=== PATIENT | female | born 1995 | race Caucasian/White ===

== ENCOUNTER 2021-10-20 05:20 | Inpatient (IN) ==
[2021-10-20] MEDS ORDERED: OXYTOCIN 30 UNITS/500 ML BAG IV PRN ×3 (07:35→23:17)
--- NOTE | 2021-10-20 07:38 | History & Physical Report ---
Date of Service October 20, 2021 Assessment & Plan (1) Supervision of normal intrauterine in primigravida: Plan: Admit to L&D, EFM/toco. Labs. OK for epidural when she desires. History of Present Illness Chief Complaint: contractions Primary Care Provider: RANDY PCP 26yo @ 39 0/7, presented with painful contractions. No leaking fluid. Had a small amount of vaginal bleeding at home prior to arrival. + movement. with echogenic bowel. Had COVID+ 09/07. Allergies Allergy/AdvReac Type Severity Reaction Status Date / Time No Known Allergies Allergy Verified 10/15/21 15:05 Home Medications Medication Instructions Recorded Confirmed Type prenat.vits,hai,yxu-lgoc-tqiuu 1 tab PO DAILY 10/20/21 10/20/21 History Patient History Medical History Foot fracture, left Family History Grandfather (Maternal) Diabetes Father Heart disease Social History Smoking Status: Never smoker Second Hand Exposure: No; Do You Dip or Chew Tobacco: No; Tobacco Cessation Education Requested by Patient: No Hx Alcohol Use: No Hx Substance Use: No Preferred Language: Peruvian Communication Ability: Effective Inspector Canvas Products Required: No Beliefs That Will Affect Care: None marital status: marital status details: Junior Maloney ([phone] Current Living Situation: Spouse Current Living Situation Comment: lives with current occupational status: unemployed Other Information That Helps Us Care for You: No Feels Safe at Home: Yes Safety Concerns: Feels Safe At This Time Assistive Devices: None Review of Systems All systems reviewed & are unremarkable except as noted in HPI & below Physical Exam Physical Exam: FHT Cat 1 [place] Q 2-3 SVE 4-5/80/-2 soft/mid Constitutional: WD/WN, vitals as above Respiratory: normal respiratory effort, lungs clear to auscultation no respiratory distress Cardiovascular: Rate/Rhythm: regular rate and regular rhythm Gastrointestinal (Abdomen): Inspection/Auscultation: abdomen normal to inspection Percussion/Palpation: abdomen soft; abdomen nontender Gravid. No s/s chorio or abruption. Skin: no rashes, warm and dry Psychiatric: A+Ox3, euthymic affect Results & Data ([facility]) Vital Signs (Past 12 Hours) Vital Signs Temp Pulse Resp BP 10/20/21 07:11 36.6 C 81 20 124/85 10/20/21 05:49 36.7 C 18 10/20/21 05:37 86 125/87 Coding Level of Care Code None Diagnoses Supervision of normal intrauterine in primigravida Z34.00
[2021-10-20 07:52] LABS: Hematocrit (blood only) 34.9 % (37-47); Hemoglobin 11.5 g/dL (12.0-16.0); Mean Corpuscular Hemoglobin 30.7 pg (25-34); Mean Corpuscular Volume 93.3 fL (80-100); Mean Platelet Volume 11.6 fL (7.4-10.4); Platelet Count 159 K/uL (130-400); RDW Coefficient of Variation 15.9 % (11.5-14.5); RDW Standard Deviation 53.4 fL (36.4-46.3); Red Blood Count 3.74 M/uL (4.2-5.4); White Blood Count 12.02 K/uL (4.8-10.8)
[2021-10-20] MEDS: LACTATED RINGER'S 1,000 ML IV PRN ×3 (07:57→16:51)
[2021-10-20] MEDS ORDERED: fentaNYL citrate 100 MCG/2 ML VIAL ONE (08:02)
[2021-10-20] MEDS ORDERED: ePHEDrine sulfate 50 MG/ML AMP ONE (08:02)
[2021-10-20] MEDS ORDERED: BUPIVACAINE 0.25% 30 ML VIAL ONE ×2 (08:02→17:21)
[2021-10-20] MEDS ORDERED: SODIUM CHLORIDE 0.9% INJ 10 ML VIAL ONE ×2 (08:02→17:22)
[2021-10-20] MEDS ORDERED: fentaNYL 2MCG/ML ROPIVACAINE 1.25MG/ML 100 ML BAG EPI ONE (08:03)
[2021-10-20] MEDS ORDERED: ONDANSETRON INJ 2 MG/ML 2 ML VIAL IV PRN (08:30)
[2021-10-20] MEDS ORDERED: fentaNYL 2MCG/ML ROPIVACAINE 1.25MG/ML 100 ML BAG EPI PRN (08:30)
[2021-10-20] MEDS ORDERED: NALOXONE HCL 1 MG in SODIUM CHLORIDE 0.9% 1000ML 1,000 ML IV PRN (08:30)
[2021-10-20] MEDS ORDERED: NALOXONE HCL 0.4 MG/1 ML VIAL/CARP IV PRN (08:30)
[2021-10-20] MEDS ORDERED: NALBUPHINE HCL INJ 10 MG/ML AMP IV PRN (08:30)
[2021-10-20] MEDS ORDERED: diphenhydrAMINE 50 MG/ML VIAL IV PRN (08:30)
[2021-10-20] MEDS ORDERED: ePHEDrine sulfate 50 MG/ML AMP IV PRN (08:30)
--- NOTE | 2021-10-20 08:32 | Anesthesiology Consultation ---
Date of Service October 20, 2021 Assessment & Plan Chart Review Chart Review: Patient NOT seen in Pre Admission Testing and Acceptable Risk for Labor Epidural Consults Requested none ASA ASA2 Proposed Anesthesia Anesthesia Type: Labor Epidural and CSE Risk / Benefits Reviewed With: PT / POA / Parent / Guardian, Accepts Plan and Informed Consent Obtained History Height/Weight Height: 5 ft 5 in Weight: 104.326 kg Allergies Allergy/AdvReac Type Severity Reaction Status Date / Time No Known Allergies Allergy Verified 10/15/21 15:05 Medications Home Medications Medication Instructions Recorded Confirmed Last Taken prenat.vits,hai,kpp-hdjm-kqvdu 1 tab PO DAILY 10/20/21 10/20/21 Unknown Active Medications Generic Name Dose Route Start Last Admin Trade Name Freq PRN Reason Stop Dose Admin Lactated Ringer's 1,000 mls @ 125 mls/hr 10/20/21 07:35 10/20/21 07:57 Lr IV 10/22/21 07:34 999 mls/hr .Q8H PRN Administration L&D Protocol Protocol NPO Date Last Intake of Fluids: 10/20/21 Time Last Intake of Fluids: 20:00 Date Last Intake of Solids: 10/19/21 Time Last Intake of Solids: 08:31 Past Medical History Medical History Foot fracture, left Exercise / Class Metabolic Activity II 4-5 Yardwork/Stairs/Walk up hill Past Family History Family History Grandfather (Maternal) Diabetes Father Heart disease Past Anesthesia History No Hx of Anesthesia Complications and No Family Hx of Anesthesia Complications History of PONV No Hx of PONV and No Hx of Motion Sickness Social History Smoking Status: Never smoker Do You Dip or Chew Tobacco: No Hx Alcohol Use: No Hx Substance Use: No substance use type: does not use Review of Systems no chest pain or sob Physical Exam Vital Signs Last Vital Signs Temp 36.6 C 10/20/21 07:11 Pulse 82 10/20/21 08:26 Resp 20 10/20/21 07:11 BP 124/85 10/20/21 07:11 Pulse Ox 100 10/20/21 08:26 ENMT Mouth: no TMJ abnormality Thyromental Distance: > or= 3.5 Finger Breadths Mallampati Class: II Neck normal visual inspection Respiratory normal respiratory effort Auscultation: lungs clear to auscultation bilaterally Cardiovascular Rate/Rhythm: regular rate and regular rhythm Musculoskeletal Spine: normal cervical ROM Neurologic moves all extremities Psychiatric Orientation: alert and oriented x 3 Testing Laboratory Results 10/20/21 07:43
[2021-10-20] MEDS: CALCIUM CARBONATE 500 MG CHEWABLE TAB PO PRN ×2 (10:24→15:55)
[2021-10-20] MEDS ORDERED: ACETAMINOPHEN 500 MG TAB PO PRN (12:27)
[2021-10-20] MEDS ORDERED: NURSING L&D Epidural Breakthrough Pain Update ONE (17:48)
--- NOTE | 2021-10-20 18:07 | Labor Progress Brief Note ---
Date of Service October 20, 2021 Subjective Somewhat comfortable with epidural redose. FHT Cat 1 [place] Q 1-2 9cm. Continue labor, anticipate . Assessment & Plan Admission and Anticipated Discharge Date Admission Date: October 20, 2021 Results & Data ([facility]) Vital Signs (Past 12 Hours) Vital Signs Temp Pulse Resp BP Pulse Ox 10/20/21 18:01 89 99 10/20/21 17:56 87 98 10/20/21 17:53 86 112/90 10/20/21 17:51 89 99 10/20/21 17:46 92 H 100 10/20/21 17:41 94 H 99 10/20/21 17:38 100 H 110/55 L 10/20/21 17:36 95 H 100 10/20/21 17:35 86 120/62 10/20/21 17:31 102 H 100 10/20/21 17:26 101 H 99 10/20/21 17:23 96 H 134/92 10/20/21 17:21 92 H 99 10/20/21 17:16 95 H 99 10/20/21 17:11 112 H 99 10/20/21 17:07 91 H 135/86 10/20/21 17:06 96 H 99 10/20/21 17:01 104 H 99 10/20/21 16:56 85 98 10/20/21 16:53 86 107/57 L 10/20/21 16:51 92 H 99 10/20/21 16:46 90 98 10/20/21 16:41 91 H 98 10/20/21 16:37 90 130/80 10/20/21 16:36 88 96 10/20/21 16:31 85 96 10/20/21 16:26 86 96 10/20/21 16:22 81 125/74 10/20/21 16:21 87 96 10/20/21 16:16 84 97 10/20/21 16:11 85 96 10/20/21 16:07 81 135/80 10/20/21 16:06 89 96 10/20/21 16:01 89 96 10/20/21 15:56 95 H 97 10/20/21 15:53 88 133/75 10/20/21 15:51 95 H 98 10/20/21 15:46 92 H 97 10/20/21 15:41 96 H 98 10/20/21 15:37 95 H 131/80 10/20/21 15:36 100 H 98 10/20/21 15:31 97 H 97 10/20/21 15:26 93 H 96 10/20/21 15:24 82 110/64 10/20/21 15:21 93 H 97 10/20/21 15:16 86 96 10/20/21 15:11 87 96 10/20/21 15:08 92 H 128/83 10/20/21 15:06 91 H 98 10/20/21 15:01 86 97 10/20/21 14:56 85 97 10/20/21 14:53 81 131/81 10/20/21 14:51 88 97 10/20/21 14:46 100 H 98 10/20/21 14:41 97 H 96 10/20/21 14:38 90 123/72 10/20/21 14:36 93 H 97 10/20/21 14:31 87 95 10/20/21 14:26 88 96 10/20/21 14:23 87 127/81 10/20/21 14:21 90 97 10/20/21 14:16 87 97 10/20/21 14:11 100 H 97 10/20/21 14:08 90 130/65 10/20/21 14:06 95 H 97 10/20/21 14:01 86 97 10/20/21 13:56 93 H 97 10/20/21 13:52 88 20 149/77 H 10/20/21 13:51 92 H 98 10/20/21 13:46 90 97 10/20/21 13:41 91 H 97 10/20/21 13:39 181 H 129/80 10/20/21 13:36 89 97 10/20/21 13:31 99 H 97 10/20/21 13:26 92 H 96 10/20/21 13:23 96 H 133/93 10/20/21 13:21 90 97 10/20/21 13:16 94 H 98 10/20/21 13:11 96 H 97 10/20/21 13:08 88 129/74 10/20/21 13:06 94 H 97 10/20/21 13:01 98 H 97 10/20/21 13:00 36.9 C 20 10/20/21 12:56 91 H 97 10/20/21 12:53 85 111/57 L 10/20/21 12:51 93 H 98 10/20/21 12:46 91 H 98 10/20/21 12:41 97 H 98 10/20/21 12:38 90 131/86 10/20/21 12:36 91 H 98 10/20/21 12:31 98 H 98 10/20/21 12:26 98 H 98 10/20/21 12:22 93 H 129/74 10/20/21 12:21 93 H 98 10/20/21 12:16 94 H 99 10/20/21 12:11 101 H 99 10/20/21 12:07 87 123/75 10/20/21 12:06 88 97 10/20/21 12:01 90 95 10/20/21 11:56 87 97 10/20/21 11:52 80 115/61 10/20/21 11:51 85 96 10/20/21 11:46 82 96 10/20/21 11:41 81 96 10/20/21 11:37 80 108/56 L 10/20/21 11:36 81 96 10/20/21 11:31 86 95 10/20/21 11:26 83 95 10/20/21 11:23 82 116/63 10/20/21 11:21 86 98 10/20/21 11:16 83 98 10/20/21 11:14 93 H 94 10/20/21 11:11 85 96 10/20/21 11:08 82 117/73 10/20/21 11:06 86 98 10/20/21 11:01 85 98 10/20/21 11:00 36.7 C 20 10/20/21 10:56 86 99 10/20/21 10:53 88 97/59 L 10/20/21 10:51 96 H 99 10/20/21 10:46 90 98 10/20/21 10:41 89 98 10/20/21 10:37 86 120/73 10/20/21 10:36 85 98 10/20/21 10:31 91 H 98 10/20/21 10:26 92 H 99 10/20/21 10:22 82 117/64 10/20/21 10:21 99 H 99 10/20/21 10:16 91 H 100 10/20/21 10:11 94 H 100 10/20/21 10:07 88 142/65 H 10/20/21 10:06 108 H 95 10/20/21 10:01 91 H 99 10/20/21 09:56 85 100 10/20/21 09:52 89 134/70 10/20/21 09:51 92 H 99 10/20/21 09:46 106 H 98 10/20/21 09:41 86 97 10/20/21 09:37 93 H 147/67 H 10/20/21 09:36 83 99 10/20/21 09:31 86 97 10/20/21 09:26 107 H 97 10/20/21 09:24 99 H 154/60 H 10/20/21 09:21 86 96 10/20/21 09:16 89 96 10/20/21 09:11 89 97 10/20/21 09:09 86 128/69 10/20/21 09:06 96 H 99 10/20/21 09:01 93 H 117/76 98 10/20/21 08:56 96 H 99 10/20/21 08:54 88 119/80 10/20/21 08:52 92 H 129/92 10/20/21 08:51 84 100 10/20/21 08:50 88 121/78 10/20/21 08:46 87 100 10/20/21 08:41 82 100 10/20/21 08:36 99 H 99 10/20/21 08:31 85 98 10/20/21 08:26 82 100 10/20/21 08:21 96 H 99 10/20/21 08:16 88 100 10/20/21 08:12 90 93 10/20/21 08:11 91 H 95 10/20/21 07:11 36.6 C 81 20 124/85 Coding Level of Care Code None
--- NOTE | 2021-10-20 21:18 | Labor Progress Brief Note ---
Date of Service October 20, 2021 Subjective Actively pushing with good effort. FHT Cat 1 [place] Q 2 Station 2+ Assessment & Plan Admission and Anticipated Discharge Date Admission Date: October 20, 2021 Results & Data ([facility]) Vital Signs (Past 12 Hours) Vital Signs Temp Pulse Resp BP Pulse Ox 10/20/21 21:16 80 100 10/20/21 21:11 95 H 100 10/20/21 21:07 86 132/75 10/20/21 21:06 97 H 99 10/20/21 21:05 36.8 C 10/20/21 21:01 85 98 10/20/21 21:00 20 10/20/21 20:56 109 H 98 10/20/21 20:51 104 H 99 10/20/21 20:46 91 H 99 10/20/21 20:41 87 100 10/20/21 20:37 85 137/93 10/20/21 20:36 87 100 10/20/21 20:31 92 H 99 10/20/21 20:30 20 10/20/21 20:26 93 H 100 10/20/21 20:23 92 H 126/85 10/20/21 20:21 99 H 99 10/20/21 20:16 95 H 100 10/20/21 20:11 96 H 98 10/20/21 20:07 96 H 128/88 10/20/21 20:06 96 H 98 10/20/21 20:01 89 97 10/20/21 20:00 16 10/20/21 19:56 92 H 99 10/20/21 19:52 93 H 132/83 10/20/21 19:51 87 98 10/20/21 19:46 93 H 99 10/20/21 19:41 94 H 100 10/20/21 19:37 86 135/87 10/20/21 19:36 91 H 97 10/20/21 19:31 90 98 10/20/21 19:30 18 10/20/21 19:26 91 H 97 10/20/21 19:22 101 H 131/88 10/20/21 19:21 94 H 99 10/20/21 19:16 90 98 10/20/21 19:11 94 H 99 10/20/21 19:08 98 H 138/78 10/20/21 19:06 96 H 98 10/20/21 19:01 36.8 C 102 H 18 99 10/20/21 18:56 83 96 10/20/21 18:52 83 127/68 10/20/21 18:51 85 96 10/20/21 18:46 90 97 10/20/21 18:41 86 97 10/20/21 18:37 89 121/64 10/20/21 18:36 87 97 10/20/21 18:31 87 97 10/20/21 18:26 86 96 10/20/21 18:22 83 119/65 10/20/21 18:21 83 97 10/20/21 18:16 87 97 10/20/21 18:11 84 96 10/20/21 18:09 86 123/70 10/20/21 18:06 88 99 10/20/21 18:01 89 99 10/20/21 17:56 87 98 10/20/21 17:53 86 112/90 10/20/21 17:51 89 99 10/20/21 17:46 92 H 100 10/20/21 17:41 94 H 99 10/20/21 17:38 100 H 110/55 L 10/20/21 17:36 95 H 100 10/20/21 17:35 86 120/62 10/20/21 17:31 102 H 100 10/20/21 17:26 101 H 99 10/20/21 17:23 96 H 134/92 10/20/21 17:21 92 H 99 10/20/21 17:16 95 H 99 10/20/21 17:11 112 H 99 10/20/21 17:07 91 H 135/86 10/20/21 17:06 96 H 99 10/20/21 17:01 104 H 99 10/20/21 16:56 85 98 10/20/21 16:53 86 107/57 L 10/20/21 16:51 92 H 99 10/20/21 16:46 90 98 10/20/21 16:41 91 H 98 10/20/21 16:37 90 130/80 10/20/21 16:36 88 96 10/20/21 16:31 85 96 10/20/21 16:26 86 96 10/20/21 16:22 81 125/74 10/20/21 16:21 87 96 10/20/21 16:16 84 97 10/20/21 16:11 85 96 10/20/21 16:07 81 135/80 10/20/21 16:06 89 96 10/20/21 16:01 89 96 10/20/21 15:56 95 H 97 10/20/21 15:53 88 133/75 10/20/21 15:51 95 H 98 10/20/21 15:46 92 H 97 10/20/21 15:41 96 H 98 10/20/21 15:37 95 H 131/80 10/20/21 15:36 100 H 98 10/20/21 15:31 97 H 97 10/20/21 15:26 93 H 96 10/20/21 15:24 82 110/64 10/20/21 15:21 93 H 97 10/20/21 15:16 86 96 10/20/21 15:11 87 96 10/20/21 15:08 92 H 128/83 10/20/21 15:06 91 H 98 10/20/21 15:01 86 97 10/20/21 14:56 85 97 10/20/21 14:53 81 131/81 10/20/21 14:51 88 97 10/20/21 14:46 100 H 98 10/20/21 14:41 97 H 96 10/20/21 14:38 90 123/72 10/20/21 14:36 93 H 97 10/20/21 14:31 87 95 10/20/21 14:26 88 96 10/20/21 14:23 87 127/81 10/20/21 14:21 90 97 10/20/21 14:16 87 97 10/20/21 14:11 100 H 97 10/20/21 14:08 90 130/65 10/20/21 14:06 95 H 97 10/20/21 14:01 86 97 10/20/21 13:56 93 H 97 10/20/21 13:52 88 20 149/77 H 10/20/21 13:51 92 H 98 10/20/21 13:46 90 97 10/20/21 13:41 91 H 97 10/20/21 13:39 181 H 129/80 10/20/21 13:36 89 97 10/20/21 13:31 99 H 97 10/20/21 13:26 92 H 96 10/20/21 13:23 96 H 133/93 10/20/21 13:21 90 97 10/20/21 13:16 94 H 98 10/20/21 13:11 96 H 97 10/20/21 13:08 88 129/74 10/20/21 13:06 94 H 97 10/20/21 13:01 98 H 97 10/20/21 13:00 36.9 C 20 10/20/21 12:56 91 H 97 10/20/21 12:53 85 111/57 L 10/20/21 12:51 93 H 98 10/20/21 12:46 91 H 98 10/20/21 12:41 97 H 98 10/20/21 12:38 90 131/86 10/20/21 12:36 91 H 98 10/20/21 12:31 98 H 98 10/20/21 12:26 98 H 98 10/20/21 12:22 93 H 129/74 10/20/21 12:21 93 H 98 10/20/21 12:16 94 H 99 10/20/21 12:11 101 H 99 10/20/21 12:07 87 123/75 10/20/21 12:06 88 97 10/20/21 12:01 90 95 10/20/21 11:56 87 97 10/20/21 11:52 80 115/61 10/20/21 11:51 85 96 10/20/21 11:46 82 96 10/20/21 11:41 81 96 10/20/21 11:37 80 108/56 L 10/20/21 11:36 81 96 10/20/21 11:31 86 95 10/20/21 11:26 83 95 10/20/21 11:23 82 116/63 10/20/21 11:21 86 98 10/20/21 11:16 83 98 10/20/21 11:14 93 H 94 10/20/21 11:11 85 96 10/20/21 11:08 82 117/73 10/20/21 11:06 86 98 10/20/21 11:01 85 98 10/20/21 11:00 36.7 C 20 10/20/21 10:56 86 99 10/20/21 10:53 88 97/59 L 10/20/21 10:51 96 H 99 10/20/21 10:46 90 98 10/20/21 10:41 89 98 10/20/21 10:37 86 120/73 10/20/21 10:36 85 98 10/20/21 10:31 91 H 98 10/20/21 10:26 92 H 99 10/20/21 10:22 82 117/64 10/20/21 10:21 99 H 99 10/20/21 10:16 91 H 100 10/20/21 10:11 94 H 100 10/20/21 10:07 88 142/65 H 10/20/21 10:06 108 H 95 10/20/21 10:01 91 H 99 10/20/21 09:56 85 100 10/20/21 09:52 89 134/70 10/20/21 09:51 92 H 99 10/20/21 09:46 106 H 98 10/20/21 09:41 86 97 10/20/21 09:37 93 H 147/67 H 10/20/21 09:36 83 99 10/20/21 09:31 86 97 10/20/21 09:26 107 H 97 10/20/21 09:24 99 H 154/60 H 10/20/21 09:21 86 96 Coding Level of Care Code None
--- NOTE | 2021-10-20 22:55 | Delivery Summary ---
Vaginal Delivery Summary Date of Service October 20, 2021 Vaginal Delivery Summary and 2nd Degree LAC Vaginal Delivery Summary: Pre-delivery diagnoses: 26yo @ 39 0/7, spontaneous labor Post-delivery diagnoses: same Procedure: spontaneous vaginal delivery Surgeon: Michaela Burnham DO Complications: none Findings: Viable female . Apgars: 8/9 . Weight pending, please see nursery records Estimated blood loss: 300ml Description of delivery: The patient progressed to complete with epidural anesthesia. She then began to push. She spontaneously vaginally delivered a viable from the cephalic presentation. The head delivered in JUVE position. The anterior shoulder delivered, followed by the posterior shoulder, followed by the body. The baby was placed on mother's abdomen and a spontaneous cry was heard. Delayed cord clamping was employed, and the cord was doubly clamped and cut. Cord blood was obtained. The placenta was delivered spontaneously intact with a 3-vessel cord. The uterus and vagina were swept of clots and debris. IV pitocin was given. The uterus became firm. The cervix, vagina, and perineum were inspected and a 2nd degree perineal laceration was noted and repaired with 3-0 vicryl. Excellent hemostasis was observed. The mother and baby are recovering in stable and good condition in the room. Sponge, needle and instrument counts were correct x 2. Michaela Burnham DO [facility] [place] Vaginal Delivery Codes: 91601 global code for the antepartum, delivery, and post- Delivery Type Details: and 2nd Degree LAC
[2021-10-20] MEDS ORDERED: HYDROCORTISONE ACETATE 25 MG SUPP PR PRN (23:17)
[2021-10-20] MEDS ORDERED: oxyCODONE/ACETAMINOPHEN 5mg/325mg TAB PO PRN (23:17)
[2021-10-20] MEDS ORDERED: bisacodyL 10 MG SUPP PR PRN (23:17)
[2021-10-20] MEDS ORDERED: ACETAMINOPHEN 325 MG TAB PO PRN (23:17)
[2021-10-20] MEDS ORDERED: DIPHTHERIA/TETANUS/PERTUSSIS 0.5 ML SYR/VIAL IM ONE (23:17)
[2021-10-20] MEDS ORDERED: BENZOCAINE 20% AER SPR 82.5 GM CAN EXT PRN (23:17)
[2021-10-21] MEDS: IBUPROFEN 600 MG TAB PO PRN ×2 (01:13→13:51)
[2021-10-21 06:46] LABS: Hematocrit (blood only) 28.6 % (37-47); Hemoglobin 9.5 g/dL (12.0-16.0)
--- NOTE | 2021-10-21 07:09 | Obstetrical Progress Note ---
Date of Service October 21, 2021 Assessment & Plan (1) Encounter for care and examination after delivery: PPD 1: stable, routine management * patient voiding and ambulating without difficulty * pain well controlled on analgesia * tolerating regular diet * * reassess d/c readiness tomorrow morning. Leah Chaparro is a 26-year-old female who is now PPD #1 following spontaneous vaginal delivery at 39 weeks. Reports feeling well overall this morning. Complains of some abdominal pain well managed on analgesics. Voiding well. Tolerating meals well and able to ambulate without dizziness or assistance. Some persistent lochia with some improvement this morning. . Review of Systems Denies fever, chills, sweats Denies shortness of breath, difficulty breathing, chest pain, palpitations, chest pressure. Denies breast pain. Denies dysuria. Denies headache or changes in vision Physical Exam General: Alert, oriented. No acute distress. Cardiac: Regular rate and rhythm, no murmurs/rubs/gallops. Respiratory: Clear to auscultation bilaterally a/p, no wheezes/rales/rhonchi. No increased work of breathing. Symmetrical chest rise. No respiratory distress. Abdomen: Soft, nontender, nondistended. Bowel sounds present. Uterus: Uterine fundus firm, palpable 1 cm below umbilicus. Lower Extremities: No lower extremity edema or swelling. No deep calf pain. Silver's negative bilaterally. Results & Data ([facility]) Vital Signs (Past 12 Hours) Vital Signs Temp Pulse Pulse Resp BP BP Pulse Ox 10/21/21 03:30 36.8 C 85 18 116/81 97 10/21/21 00:40 36.7 C 86 16 135/84 10/21/21 00:20 36.7 C 86 20 135/84 10/21/21 00:04 82 108/65 10/20/21 23:50 18 10/20/21 23:21 90 127/93 10/20/21 23:20 20 10/20/21 23:05 88 18 118/61 10/20/21 22:51 83 117/61 10/20/21 22:50 18 10/20/21 22:36 94 H 153/71 H 10/20/21 22:35 20 10/20/21 22:20 99 H 18 131/82 10/20/21 22:16 91 H 100 03/13/22 22:11 86 100 10/20/21 22:07 106 H 91 10/20/21 22:06 106 H 95 10/20/21 22:01 92 H 100 10/20/21 22:00 20 10/20/21 21:56 86 100 10/20/21 21:52 78 122/85 10/20/21 21:51 81 100 10/20/21 21:46 85 100 10/20/21 21:41 83 99 10/20/21 21:37 81 129/82 10/20/21 21:36 81 100 10/20/21 21:31 85 97 10/20/21 21:30 18 10/20/21 21:28 108 H 93 10/20/21 21:26 83 100 10/20/21 21:22 79 128/78 10/20/21 21:21 79 100 10/20/21 21:16 80 100 10/20/21 21:11 95 H 100 10/20/21 21:07 86 132/75 10/20/21 21:06 97 H 99 10/20/21 21:05 36.8 C 10/20/21 21:01 85 98 10/20/21 21:00 20 10/20/21 20:56 109 H 98 10/20/21 20:51 104 H 99 10/20/21 20:46 91 H 99 10/20/21 20:41 87 100 10/20/21 20:37 85 137/93 10/20/21 20:36 87 100 10/20/21 20:31 92 H 99 10/20/21 20:30 20 10/20/21 20:26 93 H 100 10/20/21 20:23 92 H 126/85 10/20/21 20:21 99 H 99 10/20/21 20:16 95 H 100 10/20/21 20:11 96 H 98 10/20/21 20:07 96 H 128/88 10/20/21 20:06 96 H 98 10/20/21 20:01 89 97 10/20/21 20:00 16 10/20/21 19:56 92 H 99 10/20/21 19:52 93 H 132/83 10/20/21 19:51 87 98 10/20/21 19:46 93 H 99 10/20/21 19:41 94 H 100 10/20/21 19:37 86 135/87 10/20/21 19:36 91 H 97 10/20/21 19:31 90 98 10/20/21 19:30 18 10/20/21 19:26 91 H 97 10/20/21 19:22 101 H 131/88 10/20/21 19:21 94 H 99 10/20/21 19:16 90 98 10/20/21 19:11 94 H 99 10/20/21 19:08 98 H 138/78 10/20/21 19:06 96 H 98 Resident Activity Tracking Resident Involvement: Resident Care Provided Care Provided: Adult Hospital Medicine
--- NOTE | 2021-10-21 07:11 | Obstetrical Progress Note ---
Date of Service October 21, 2021 Assessment & Plan (1) Encounter for care and examination after delivery: PPD#1 doing well. Anticipate DC home tomorrow. Subjective Ambulation: ambulating normally Voiding: no voiding problems Diet Tolerance:: regular diet Lochia:: Moderate Review of Systems All systems reviewed & are unremarkable except as noted in HPI & below Physical Exam Constitutional WD/WN, vitals as above no acute distress Respiratory normal respiratory effort Cardiovascular Rate/Rhythm: regular rate and regular rhythm Gastrointestinal (Abdomen) Inspection/Auscultation: abdomen normal to inspection; abdomen not distended Percussion/Palpation: abdomen soft Genitourinary OB Exam Abdomen: + fundal height Fundus: + firm; not tender Results & Data ([facility]) Vital Signs (Past 12 Hours) Vital Signs Temp Pulse Pulse Resp BP BP Pulse Ox 10/21/21 03:30 36.8 C 85 18 116/81 97 10/21/21 00:40 36.7 C 86 16 135/84 10/21/21 00:20 36.7 C 86 20 135/84 10/21/21 00:04 82 108/65 10/20/21 23:50 18 10/20/21 23:21 90 127/93 10/20/21 23:20 20 10/20/21 23:05 88 18 118/61 10/20/21 22:51 83 117/61 10/20/21 22:50 18 10/20/21 22:36 94 H 153/71 H 10/20/21 22:35 20 10/20/21 22:20 99 H 18 131/82 10/20/21 22:16 91 H 100 10/20/21 22:11 86 100 10/20/21 22:07 106 H 91 10/20/21 22:06 106 H 95 10/20/21 22:01 92 H 100 10/20/21 22:00 20 10/20/21 21:56 86 100 10/20/21 21:52 78 122/85 10/20/21 21:51 81 100 10/20/21 21:46 85 100 10/20/21 21:41 83 99 10/20/21 21:37 81 129/82 10/20/21 21:36 81 100 10/20/21 21:31 85 97 10/20/21 21:30 18 10/20/21 21:28 108 H 93 03/13/22 21:26 83 100 10/20/21 21:22 79 128/78 10/20/21 21:21 79 100 10/20/21 21:16 80 100 10/20/21 21:11 95 H 100 10/20/21 21:07 86 132/75 10/20/21 21:06 97 H 99 10/20/21 21:05 36.8 C 10/20/21 21:01 85 98 10/20/21 21:00 20 10/20/21 20:56 109 H 98 10/20/21 20:51 104 H 99 10/20/21 20:46 91 H 99 10/20/21 20:41 87 100 10/20/21 20:37 85 137/93 10/20/21 20:36 87 100 10/20/21 20:31 92 H 99 10/20/21 20:30 20 10/20/21 20:26 93 H 100 10/20/21 20:23 92 H 126/85 10/20/21 20:21 99 H 99 10/20/21 20:16 95 H 100 10/20/21 20:11 96 H 98 10/20/21 20:07 96 H 128/88 10/20/21 20:06 96 H 98 10/20/21 20:01 89 97 10/20/21 20:00 16 10/20/21 19:56 92 H 99 10/20/21 19:52 93 H 132/83 10/20/21 19:51 87 98 10/20/21 19:46 93 H 99 10/20/21 19:41 94 H 100 10/20/21 19:37 86 135/87 10/20/21 19:36 91 H 97 10/20/21 19:31 90 98 10/20/21 19:30 18 10/20/21 19:26 91 H 97 10/20/21 19:22 101 H 131/88 10/20/21 19:21 94 H 99 10/20/21 19:16 90 98 10/20/21 19:11 94 H 99
[2021-10-21] MEDS: PRENATAL VITAMIN 1 TAB PO SCH (08:38)
[2021-10-21] MEDS: DOCUSATE SODIUM 100 MG CAP PO SCH ×2 (08:38→22:14)
--- NOTE | 2021-10-21 11:32 | Anesthesia Procedure Note ---
Date of Service October 21, 2021 Anesthesia Post Epidural Note Vital Signs Vital Signs: Temp Pulse Resp BP Pulse Ox 36.6 C 75 18 119/79 97 10/21/21 11:04 10/21/21 11:04 10/21/21 11:04 10/21/21 11:04 10/21/21 11:04 Pain Intensity Bilateral Abdomen: Pain Intensity: 0 Episiotomy/Laceration: Pain Intensity: 3 Notes Mental Status: alert / awake / arousable and participated in evaluation Nausea / Vomiting: adequately controlled Pain: adequately controlled Airway Patency, RR, SpO2: stable & adequate BP & HR: stable & adequate Hydration State: stable & adequate Neuraxial Anesthesia: was administered and sensory block is resolving Anesthetic Complications: no major complications apparent and Pt Satisfied with anesthetic care Epidural: Removed without complications and With tip intact
[2021-10-21] MEDS ORDERED: bisacodyL 5 MG TABEC PO SCH (20:00)
[2021-10-22] MEDS: IBUPROFEN 600 MG TAB PO PRN ×2 (01:13→10:52)
--- NOTE | 2021-10-22 08:02 | Obstetrical Progress Note ---
Date of Service <Gordo Witt MD - Last Filed: 10/22/21 08:02> October 22, 2021 Assessment & Plan <Gordo Witt MD - Last Filed: 10/22/21 08:02> (1) Encounter for care and examination after delivery: PPD 1: stable, routine management * patient voiding and ambulating without difficulty * pain well controlled on analgesia * tolerating regular diet * * Anticipate discharge today * 6-week outpatient OB follow-up <Angela Acuna MD - Last Filed: 10/22/21 08:20> (1) Encounter for care and examination after delivery: Subjective <Gordo Witt MD - Last Filed: 10/22/21 08:02> Krysta is a 26-year-old who is now PPD #2 following spontaneous vaginal delivery at 39 weeks. Reports feeling well overall this morning.Abdominal cramping pain well managed on analgesics. Voiding well. Tolerating meals well and able to ambulate without assistance, or dizziness. Some persistent lochia wi th some improvement this morning. . Review of Systems Denies fever, chills, sweats Denies shortness of breath, difficulty breathing, chest pain, palpitations, chest pressure. Denies breast pain. Denies dysuria. Denies headache or changes in vision Physical Exam <Gordo Witt MD - Last Filed: 10/22/21 08:02> General: Alert, oriented. No acute distress. Cardiac: Regular rate and rhythm, no murmurs/rubs/gallops. Respiratory: Clear to auscultation bilaterally a/p, no wheezes/rales/rhonchi. No increased work of breathing. Symmetrical chest rise. No respiratory distress. Abdomen: Soft, nontender, nondistended. Bowel sounds present. Uterus: Uterine fundus firm, palpable 1 cm below umbilicus. Lower Extremities: No lower extremity edema or swelling. No deep calf pain. Silver's negative bilaterally. Results & Data ([facility]) <Gordo Witt MD - Last Filed: 10/22/21 08:02> Vital Signs (Past 12 Hours) Vital Signs Temp Pulse Resp BP 10/21/21 23:05 36.8 C 96 H 18 111/75 <Angela Acuna MD - Last Filed: 10/22/21 08:20> Co-Signing Physician Notes Resident Physician Supervision Note: I interviewed and examined the patient. Discussed with Dr. Witt and agree with findings and plan as documented in the note. Any exceptions or clarifications are listed here: PP2 s/p , doing well. VSS, exam benign and wnl. Stable for d/c home today Documented By: Angela Acuna MD Resident Activity Tracking <Gordo Witt MD - Last Filed: 10/22/21 08:02> Resident Involvement: Resident Care Provided Care Provided: Adult Hospital Medicine
[2021-10-22] MEDS: DOCUSATE SODIUM 100 MG CAP PO SCH (08:32)
[2021-10-22] MEDS: PRENATAL VITAMIN 1 TAB PO SCH (08:32)
== END 2021-10-22 14:25 | disposition home or self-care (01) | DRG 807 ==
LOC: OPB 05:20 → 4S1 05:21 → 4S2 10-21 00:52

== ENCOUNTER 2021-12-03 22:05 | Observation (INO) ==
[2021-12-03] MEDS ORDERED: ONDANSETRON INJ 2 MG/ML 2 ML VIAL IV STA (23:15)
[2021-12-03] MEDS ORDERED: MoRPHine SULFATE 4 MG/ML 1 ML CARP\\VIAL IV STA (23:15)
[2021-12-03] MEDS ORDERED: SODIUM CHLORIDE 0.9% 1000ML 1,000 ML IV STA (23:15)
--- NOTE | 2021-12-03 23:19 | Emergency Department Note ---
Impression & Plan Acute cholecystitis ADMIT ED Provider Note HPI: The patient is a 26-year-old female with no significant past medical history, presents the emergency department with a chief complaint of right upper quadrant pain that radiates to her back. Patient states she has had this pain now for several weeks, she was previously evaluated in the emergency department and discharged home following negative CT angiography of the chest. Patient states that the pain has continued, she had a severe episode tonight when she was in the shower and therefore her contacted 911 for her to be transported to the emergency department. She has had multiple episodes of nausea and vomiting during the past several weeks. On arrival here to the ED she is in mild discomfort secondary to right upper quadrant pain but otherwise she is hemodynamically stable on my initial assessment. ROS: -GI: Right upper quadrant pain, nausea and vomiting *10 point review systems was conducted and is otherwise negative unless stated above *Outpatient medications and allergy history reviewed PE: General: Alert, NAD HEENT: Normocephalic, atraumatic Eyes: Extraocular eye movement is intact, no scleral erythema Pulmonary: Clear to auscultation bilaterally, no wheezing Cardio: Regular rate and rhythm GI: There is right upper quadrant tenderness to palpation, no guarding or rigidity : No suprapubic tenderness MSK: No evidence of trauma or malformation of the extremities, no edema Skin: No evidence of rash Neuro: Alert, no focal deficits Psychiatric: Cooperative ecommerce merchandising manager: - An order was placed for continuous cardiac monitoring - Patient was noted to be in sinus rhythm with rate of 70 CT ABDOMEN & PELVIS With Contrast: Comparison: None. Minimal posterior dependent atelectasis otherwise clear lung bases. Normal heart. Thickening of gallbladder wall with tiny stones, concerning for acute cholecystitis, recommend follow-up with right upper quadrant ultrasound. The remainder of the abdominal viscera unremarkable. Normal small bowel and colon. Normal appendix. Normal stomach. Anteverted uterus. Normal urinary bladder. Normal aorta. Normal bony structures. Radiologist: Angelia Trujillo MD US GALLBLADDER: Limited exam due to gas artifact with obscuration of the pancreas. Diffuse fatty liver. The liver measures 14.0 cm. Multiple small gallstones. Gallbladder wall measures 4 mm. Negative Brooks sign. Cannot entirely exclude acute cholecystitis, recommend follow-up with HIDA scan if clinically indicated. Common bile duct measures 5 mm. Right kidney measures 9.8 cm, otherwise normal. No free fluid. Radiologist: Angelia Trujillo MD Medical Decision Making: Patient presented to the emergency department the chief complaint of right upper quadrant pain that radiated to her back. Shortly after arrival IV was es tablished, lab work obtained, patient was placed on planting supervisor. Ultrasound imaging of the gallbladder is nondiagnostic for acute cholecystitis, there is mention that the patient has multiple gallstones that appear small. Gallbladder wall measures of 4 mm, CT imaging of the abdomen pelvis was obtained that is concerning for acute cholecystitis. There is no transaminitis or hyperbilirubinemia. Patient did require multiple doses of morphine here in the ED for pain, she is tender on my examination, I do feel that she should have her pain surgically addressed and that she likely does have acute cholecystitis. I did contact on-call general surgery, Dr. Salmon, she is in agreement to evaluate the patient for operative intervention, patient is in agreement for admission, she was admitted to Dr. Salmon service in stable condition for further care. Diagnosis: 1. Acute abdominal pain 2. Acute cholecystitis Disposition: Admission Renan Hargrove DO Emergency Medicine Past Med/Surg History Medical History Foot fracture, left Surgical History No significant past surgical history Family History Grandfather (Maternal) Diabetes Father Heart disease Social History Smoking Status: Never smoker Second Hand Exposure: No; Hx Alcohol Use: No Hx Substance Use: No Preferred Language: Montenegrin Communication Ability: Effective Fixture Builder Required: No Beliefs That Will Affect Care: None marital status: marital status details: Junior Maloney (26) [phone] Current Living Situation: Spouse Current Living Situation Comment: lives with current occupational status: unemployed Feels Safe at Home: Yes Assistive Devices: None Allergies Allergies Allergy/AdvReac Type Severity Reaction Status Date / Time No Known Allergies Allergy Verified 12/03/21 22:48 Home Meds Home Medications Medication Instructions Recorded Confirmed prenat.vits,hai,[id number] 1 tab PO DAILY 10/20/21 12/03/21 acetaminophen 500 mg tablet 1,000 mg PO Q6 PRN 12/03/21 12/03/21 (Tylenol Extra Strength) Results & Data (ED) Vital Signs Vital Signs - 24 hr 12/03/21 22:14 12/04/21 00:21 12/04/21 00:23 Temperature 37.3 C Temperature Source Oral Pulse Rate 79 78 Pulse Rate [Finger] 79 Respiratory Rate 18 18 18 Respiratory Effort / Characteristics Non-Labored Spontaneous Respiratory Depth Normal Blood Pressure 110/75 Blood Pressure [Left Arm] 101/71 Blood Pressure Mean 86 Blood Pressure Mean [Left Arm] 81 Blood Pressure Position Sitting Blood Pressure Position [Left Arm] Lying Pulse Oximetry 100 97 98 Oxygen Delivery Method Room Air Room Air Room Air Sepsis Recent Fever Within 48 Hours No Sepsis New/Unexplained Change in Mental Status No Sepsis Action Taken by Nursing No Action Required 12/04/21 02:22 12/04/21 03:30 Temperature Temperature Source Pulse Rate Pulse Rate [Finger] 84 65 Respiratory Rate 18 18 Respiratory Effort / Characteristics Respiratory Depth Blood Pressure Blood Pressure [Left Arm] 99/63 L 96/52 L Blood Pressure Mean Blood Pressure Mean [Left Arm] 75 66 Blood Pressure Position Blood Pressure Position [Left Arm] Pulse Oximetry 99 96 Oxygen Delivery Method Room Air Room Air Sepsis Recent Fever Within 48 Hours Sepsis New/Unexplained Change in Mental Status Sepsis Action Taken by Nursing Laboratory Data Result diagrams: 12/03/21 22:23 12/03/21 22:23 Lab Results 12/03/21 12/03/21 12/03/21 Range/Units 22:23 22:23 22:23 WBC 8.84 (4.8-10.8) K/uL RBC 3.99 L (4.2-5.4) M/uL Hgb 12.0 (12.0-16.0) g/dL Hct 36.6 L (37-47) % MCV 91.7 (80-100) fL MCH 30.1 (25-34) pg MCHC 32.8 (32-36) g/dL RDW Std Deviation 47.5 H (36.4-46.3) fL RDW Coeff of Luz Maria 13.9 (11.5-14.5) % Plt Count 261 (130-400) K/uL MPV 10.8 H (7.4-10.4) fL Immature Gran % (Auto) 0.1 % Neut % (Auto) 70.5 % Lymph % (Auto) 21.9 % [place] % (Auto) 7.2 % Eos % (Auto) 0.3 % Baso % (Auto) 0.0 % Neut # (Auto) 6.22 (1.4-6.5) K/uL Lymph # (Auto) 1.94 (1.2-3.4) K/uL [place] # (Auto) 0.64 H (0.11-0.59) K/uL Eos # (Auto) 0.03 (0-0.5) K/uL Baso # (Auto) 0.00 (0-0.2) K/uL Immature Gran # (Auto) 0.01 (0.00-0.02) K/uL Sodium 137 (136-145) mmol/L Potassium 3.5 (3.5-5.1) mmol/L Chloride 100 (98-107) mmol/L Carbon Dioxide 26 (21-32) mmol/L Anion Gap 11 (3-11) BUN 18 (6-23) mg/dl Creatinine 0.82 (0.6-1.2) mg/dl Est Cr Clr Drug Dosing 118.5 ml/min Est GFR ( Amer) 112.9 ml/min Est GFR (Non-Af Amer) 97.4 ml/min BUN/Creatinine Ratio 22.0 H (10-20) Glucose 98 (70-99(Fasting)) mg/dl Calcium 10.1 (8.5-10.1) mg/dl Total Bilirubin 0.3 (0.2-1.0) mg/dl AST 18 (13-39) U/L ALT 21 (7-52) U/L Alkaline Phosphatase 70 (34-104) U/L Total Protein 8.1 (6.0-8.3) gm/dl Albumin 4.6 (3.4-5.0) gm/dl Globulin 3.5 (2.5-4.0) gm/dl Albumin/Globulin Ratio 1.3 (0.9-2) Lipase 15 (11-82) U/L HCG, Qual Negative (Negative) Urine Color Urine Appearance (Clear) Urine pH (4.5-7.5) Ur Specific [place] (1.000-1.030) Urine Protein (Negative) Urine Glucose (UA) (Negative) Urine Ketones (Negative) Urine Blood (Negative) Urine Nitrite (Negative) Urine Bilirubin (Negative) Urine Urobilinogen (Negative) Ur Leukocyte Esterase (Negative) Urine WBC (Auto) (0-5) /hpf Urine RBC (Auto) (0-4) /hpf U Hyaline Cast (Auto) (0-5) /lpf U Epithel Cells (Auto) (0-5) /lpf Urine Bacteria (Auto) (Negative) 12/04/21 Range/Units 01:29 WBC (4.8-10.8) K/uL RBC (4.2-5.4) M/uL Hgb (12.0-16.0) g/dL Hct (37-47) % MCV (80-100) fL MCH (25-34) pg MCHC (32-36) g/dL RDW Std Deviation (36.4-46.3) fL RDW Coeff of Luz Maria (11.5-14.5) % Plt Count (130-400) K/uL MPV (7.4-10.4) fL Immature Gran % (Auto) % Neut % (Auto) % Lymph % (Auto) % [place] % (Auto) % Eos % (Auto) % Baso % (Auto) % Neut # (Auto) (1.4-6.5) K/uL Lymph # (Auto) (1.2-3.4) K/uL [place] # (Auto) (0.11-0.59) K/uL Eos # (Auto) (0-0.5) K/uL Baso # (Auto) (0-0.2) K/uL Immature Gran # (Auto) (0.00-0.02) K/uL Sodium (136-145) mmol/L Potassium (3.5-5.1) mmol/L Chloride (98-107) mmol/L Carbon Dioxide (21-32) mmol/L Anion Gap (3-11) BUN (6-23) mg/dl Creatinine (0.6-1.2) mg/dl Est Cr Clr Drug Dosing ml/min Est GFR ( Amer) ml/min Est GFR (Non-Af Amer) ml/min BUN/Creatinine Ratio (10-20) Glucose (70-99(Fasting)) mg/dl Calcium (8.5-10.1) mg/dl Total Bilirubin (0.2-1.0) mg/dl AST (13-39) U/L ALT (7-52) U/L Alkaline Phosphatase (34-104) U/L Total Protein (6.0-8.3) gm/dl Albumin (3.4-5.0) gm/dl Globulin (2.5-4.0) gm/dl Albumin/Globulin Ratio (0.9-2) Lipase (11-82) U/L HCG, Qual (Negative) Urine Color Yellow Urine Appearance Clear (Clear) Urine pH 7.0 (4.5-7.5) Ur Specific [place] 1.016 (1.000-1.030) Urine Protein Negative (Negative) Urine Glucose (UA) Negative (Negative) Urine Ketones 1+ H (Negative) Urine Blood Negative (Negative) Urine Nitrite Negative (Negative) Urine Bilirubin Negative (Negative) Urine Urobilinogen Negative (Negative) Ur Leukocyte Esterase Trace H (Negative) Urine WBC (Auto) 1-5 (0-5) /hpf Urine RBC (Auto) 0-4 (0-4) /hpf U Hyaline Cast (Auto) 0 (0-5) /lpf U Epithel Cells (Auto) 10-20 H (0-5) /lpf Urine Bacteria (Auto) Negative (Negative) Administered Medications Discontinued Medications Sodium Chloride (Nss 1000ml) 1,000 mls @ 999 mls/hr IV .Q1H1M STA Stop: 12/04/21 00:15 Last Infusion: 12/04/21 01:13 Dose: 0 mls/hr Documented by: [id number] Admin: 12/03/21 23:33 Dose: 999 mls/hr Documented by: [id number] Ioversol (Optiray 320 100ml) 100 ml IV ONCE ONE Stop: 12/04/21 03:19 Last Admin: 12/04/21 03:18 Dose: 93 ml Documented by: [id number] Morphine Sulfate (Morphine Sulfate 4 Mg/Ml 1 Ml Carp\Vial) 4 mg IV NOW STA Stop: 12/03/21 23:16 Last Admin: 12/03/21 23:33 Dose: 4 mg Documented by: [id number] Morphine Sulfate (Morphine Sulfate 4 Mg/Ml 1 Ml Carp\Vial) 4 mg IV NOW STA Stop: 12/04/21 00:17 Last Admin: 12/04/21 00:23 Dose: 4 mg Documented by: [id number] Ondansetron HCl (Ondansetron Inj 2 Mg/Ml 2 Ml Vial) 4 mg IV NOW STA Stop: 12/03/21 23:16 Last Admin: 12/03/21 23:31 Dose: 4 mg Documented by: [id number] Discharge Plan Visit Data Chief Complaint: Back Injury/Pain Stated Complaint: Back Pain ED Provider: Renan Hargrove Discharge Problem: Acute cholecystitis Forms Stand Alone Forms: [facility] Prescriptions Prescriptions: No Action prenat.vits,hai,[id number] Tablet 1 tab PO DAILY RF: 0 acetaminophen [Tylenol Extra Strength] 500 mg Tablet 1,000 mg PO Q6 PRN (Reason: Pain) RF: 0 Referrals Referrals: Nora Stanley MD [Primary Care Provider] -
[2021-12-03 23:45] LABS: Eosinophils # (auto) 0.03 K/uL (0-0.5); Eosinophils % (auto) 0.3 %; Hematocrit (blood only) 36.6 % (37-47); Immature Granulocytes # (auto) 0.01 K/uL (0.00-0.02); Immature Granulocytes % (auto) 0.1 %; Lymphocytes # (auto) 1.94 K/uL (1.2-3.4); Lymphocytes % (auto) 21.9 %; Mean Corpuscular Hemoglobin 30.1 pg (25-34); Mean Corpuscular Hgb Conc 32.8 g/dL (32-36); Mean Corpuscular Volume 91.7 fL (80-100); Mean Platelet Volume 10.8 fL (7.4-10.4); Monocytes # (auto) 0.64 K/uL (0.11-0.59); Monocytes % (auto) 7.2 %; Neutrophils # (auto) 6.22 K/uL (1.4-6.5); Neutrophils % (auto) 70.5 %; Platelet Count 261 K/uL (130-400); RDW Coefficient of Variation 13.9 % (11.5-14.5); RDW Standard Deviation 47.5 fL (36.4-46.3); Red Blood Count 3.99 M/uL (4.2-5.4); White Blood Count 8.84 K/uL (4.8-10.8)
[2021-12-03 23:48] LABS: Pregnancy Test, Serum Negative (Negative)
[2021-12-03 23:50] LABS: Albumin Globulin Ratio 1.3 (0.9-2); Albumin Level 4.6 gm/dl (3.4-5.0); Bilirubin,Total 0.3 mg/dl (0.2-1.0); Calcium 10.1 mg/dl (8.5-10.1); Creatinine Clr Calc Pharmacy 118.5 ml/min; Est GFR (African American) 112.9 ml/min; Est GFR (Non-African American) 97.4 ml/min; Globulin 3.5 gm/dl (2.5-4.0); Potassium 3.5 mmol/L (3.5-5.1); Total Protein 8.1 gm/dl (6.0-8.3)
[2021-12-04] MEDS ORDERED: MoRPHine SULFATE 4 MG/ML 1 ML CARP\\VIAL IV STA (00:16)
[2021-12-04 02:00] LABS: Appearance Urine Clear (Clear); Bacteria Urine Automated Negative (Negative); Bilirubin Urine Negative (Negative); Blood Urine Negative (Negative); Cast Urine Automated 0 /lpf (0-5); Color Urine Yellow; Glucose Urine UA Negative (Negative); Ketones Urine 1+ (Negative); Leukocyte Esterase Urine Trace (Negative); Nitrite Urine Negative (Negative); Protein Urine Negative (Negative); RBC Urine Automated 0-4 /hpf (0-4); Specific Gravity Urine 1.016 (1.000-1.030); Urobilinogen Urine Negative (Negative)
[2021-12-04] MEDS ORDERED: OPTIRAY 320 100ml IV ONE (03:18)
[2021-12-04] MEDS ORDERED: ACETAMINOPHEN 325 MG TAB PO PRN (06:37)
[2021-12-04] MEDS ORDERED: MoRPHine SULFATE 4 MG/ML 1 ML CARP\\VIAL IV PRN (06:37)
[2021-12-04] MEDS ORDERED: MoRPHine SULFATE 2 MG/ML CARP IV PRN (06:37)
[2021-12-04] MEDS ORDERED: ONDANSETRON INJ 2 MG/ML 2 ML VIAL IV PRN ×2 (06:37→14:39)
--- NOTE | 2021-12-04 07:30 | Ultrasound Report ---
ULTRASOUND RIGHT UPPER QUADRANT ABDOMEN CLINICAL HISTORY: Right upper quadrant abdominal pain. COMPARISON STUDY: No priors. TECHNIQUE: Real-time, grayscale, and color flow sonography of the right upper quadrant of the abdomen was performed. Images are reviewed in the transverse and longitudinal planes. FINDINGS: Liver: The liver is normal in size and echotexture. There is no intrahepatic biliary ductal dilatatio n. The main portal vein is patent. Gallbladder: There are shadowing calcified gallstones with a gallstone seen in the region of the gall bladder neck. The gallbladder is mildly distended. The wall is thickened and edematous, measuring up to 4 mm. No pericholecystic fluid is seen. A sonographic Brooks's sign is reportedly absent. The comm on bile duct measures up to 0.5 cm in diameter. Pancreas: Not well visualized due to overlying bowel gas. Right kidney: Survey images of the right kidney demonstrate normal size and echotexture. There is no hydronephrosis. Ascites: None. IMPRESSION: 1. Cholelithiasis within an abnormal appearing distended gallbladder. The gallbladder wall is thicken ed and edematous. Although a sonographic Brooks's sign is reportedly absent, the findings are concern ing for acute cholecystitis. Surgical evaluation is advised. If this does not fit the clinical presen tation a nuclear hepatobiliary scan could be considered for further assessment. 2. There is no intra or extrahepatic biliary ductal dilatation. ACT 112: Negative or not required by law. Electronically signed by: Cornelio Wilson M.D. 12/04/2021 7:27 AM
--- NOTE | 2021-12-04 07:54 | CT Scan Report ---
CT abd pelvis IV con only CLINICAL HISTORY: R sided abd pain TECHNIQUE: Helical axial images of the abdomen and pelvis were obtained and displayed. Automated dose lowering techniques and/or adjustment according to patient size were utilized for this exam. This e xam was performed with intravenous contrast. CT DOSE: 824.96 mGy.cm COMPARISON: None available at the time of this dictation. FINDINGS: Lower chest: No acute abnormality Liver: Unremarkable. No focal lesions are seen. Gallbladder and biliary tree: There is thickening of the gallbladder wall measuring up to 3 mm. Peric holecystic fluid is seen. Gallstone is seen in the gallbladder neck. No intra- or extrahepatic biliar y ductal dilation. Pancreas: Unremarkable, no focal lesions. Spleen: Unremarkable. Adrenals: Unremarkable. Kidneys and ureters: Unremarkable. Bladder: Unremarkable. Reproductive organs: Unremarkable. Bowel: Unremarkable appearance of the bowel. The appendix is normal. Lymph nodes Retroperitoneal: Unremarkable. Mesenteric: Unremarkable. Pelvic: Unremarkable. Peritoneum: Normal. Vessels: Unremarkable. Abdominal wall: Unremarkable. Bones: Unremarkable. IMPRESSION: Findings are compatible with acute cholecystitis, with color wall thickening, stone in the gallbladde r neck, and pericholecystic fluid. ACT 112: Negative or not required by law. Electronically signed by: Eladio Benjamin M.D. 12/04/2021 7:52 AM
[2021-12-04] MEDS: AMPICILLIN/SULBACTAM SOD 1,500 MG in 0.9 % SODIUM CHLORIDE 100 ML IV SCH ×3 (09:37→19:51)
[2021-12-04] MEDS: LACTATED RINGER'S 1,000 ML IV SCH (10:12)
--- NOTE | 2021-12-04 10:19 | Electrocardiogram Report ---
Test Reason : Blood Pressure : / mmHG Vent. Rate : 086 BPM Atrial Rate : 086 BPM P-R Int : 148 ms QRS Dur : 074 ms QT Int : 364 ms P-R-T Axes : 083 -08 024 degrees QTc Int : 435 ms Poor data quality, interpretation may be adversely affected Normal sinus rhythm Poor R wave progression, consider anterior SC vs. lead placement vs. LVH Abnormal ECG No previous ECGs available Confirmed by Charles Hoffman ([id number]) on 12/04/2021 10:18:37 AM Referred By: REFERRED SELF Confirmed By:Charles Hoffman
--- NOTE | 2021-12-04 14:24 | Surgery Consultation ---
Date of Consultation December 04, 2021 Assessment & Plan (1) Acute cholecystitis: pt is a 26 year-old female who presents to ER with RUQ pain for 1 week, IMP: acute cholecystitis, cholelithiasis, plan, I recommend to do laparoscopic cholecystectomy, possible open or cholangiogram, D/W benefits, risks and alternatives of the surgery, the risks - infection, bleeding, injury other organs, incisional hernia, pt and her understood, they agree with the surgery, pt signed informed consent, I answered all questions, History of Present Illness Reason for Consultation: acute cholecystitis Requesting Physician: Renan Hargrove MD Attending Physician: Jaja Salmon MD History of Present Illness HPI: The patient is a 26-year-old female with no significant past medical history, presents the emergency department with a chief complaint of right upper quadrant pain that radiates to her back. Patient states she has had this pain now for several weeks, she was previously evaluated in the emergency department and discharged home following negative CT angiography of the chest. Patient states that the pain has continued, she had a severe episode tonight when she was in the shower and therefore her contacted 911 for her to be transported to the emergency department. She has had multiple episodes of nausea and vomiting during the past several weeks. On arrival here to the ED she is in mild discomfort secondary to right upper quadrant pain but otherwise she is hemodynamically stable on my initial assessment. I ( Kindra Castle MD ) reviewed pt's H/P, labs and U/S and CT scan with pt and her , Allergies Allergy/AdvReac Type Severity Reaction Status Date / Time No Known Allergies Allergy Verified 12/03/21 22:48 Home Medications Medication Instructions Recorded Confirmed Type prenat.vits,hai,ucn-jpax-dwkmf 1 tab PO DAILY 10/20/21 12/03/21 History acetaminophen 500 mg tablet 1,000 mg PO Q6 PRN 12/03/21 12/03/21 History (Tylenol Extra Strength) Patient History Medical History Foot fracture, left Surgical History No significant past surgical history Family History Grandfather (Maternal) Diabetes Father Heart disease Social History Smoking Status: Never smoker Second Hand Exposure: No; Hx Alcohol Use: No Hx Substance Use: No Preferred Language: Qatari Communication Ability: Effective Communication Ability Comment: and IPAD Audio Recording Engineer Required: Yes and No Beliefs That Will Affect Care: None marital status: marital status details: Junior Maloney (26) [phone] Current Living Situation: Spouse Current Living Situation Comment: lives with current occupational status: unemployed Feels Safe at Home: Yes Assistive Devices: None Review of Systems Constitutional: as per Subjective / HPI Eyes: as per Subjective / HPI Respiratory: as per Subjective / HPI Cardiovascular: as per Subjective / HPI Gastrointestinal: as per Subjective / HPI Genitourinary: as per Subjective / HPI Neurologic: as per Subjective / HPI Psychiatric: as per Subjective / HPI Endocrine: as per Subjective / HPI Hematologic / Lymphatic: as per Subjective / HPI Physical Exam Constitutional: WD/WN, vitals as above no distress Eyes: PERRL, conjunctivae normal, anicteric sclerae Neck: trachea midline, no thyromegaly Respiratory: normal respiratory effort, lungs clear to auscultation Cardiovascular: RRR, no murmur, no edema Gastrointestinal (Abdomen): soft, mild tenderness at RUQ, no rebound pain, BS + Musculoskeletal: no cyanosis or clubbing, extremities motor strength 5/5 Neurologic: patellar DTR's 2+ bilat, sensation intact Psychiatric: A+Ox3, euthymic affect Results & Data ([facility]) Vital Signs (Past 12 Hours) Vital Signs Temp Pulse Resp BP BP Pulse Ox 12/04/21 13:20 36.5 C 66 18 93/74 L 97 12/04/21 08:42 36.7 C 68 18 94/60 L 98 12/04/21 06:00 18 92/57 L 96 12/04/21 04:30 18 92/54 L 97 12/04/21 04:00 18 92/52 L 95 12/04/21 03:30 65 18 96/52 L 96 12/04/21 02:22 84 18 99/63 L 99 Laboratory Results Abnormal lab results 12/03/21 12/03/21 12/04/21 Range/Units 22:23 22:23 01:29 RBC 3.99 L (4.2-5.4) M/uL Hct 36.6 L (37-47) % RDW Std Deviation 47.5 H (36.4-46.3) fL MPV 10.8 H (7.4-10.4) fL [place] # (Auto) 0.64 H (0.11-0.59) K/uL BUN/Creatinine Ratio 22.0 H (10-20) Urine Ketones 1+ H (Negative) Ur Leukocyte Esterase Trace H (Negative) U Epithel Cells (Auto) 10-20 H (0-5) /lpf Diagnostic Findings ULTRASOUND RIGHT UPPER QUADRANT ABDOMEN CLINICAL HISTORY: Right upper quadrant abdominal pain. COMPARISON STUDY: No priors. TECHNIQUE: Real-time, grayscale, and color flow sonography of the right upper quadrant of the abdomen was performed. Images are reviewed in the transverse and longitudinal planes. FINDINGS: Liver: The liver is normal in size and echotexture. There is no intrahepatic biliary ductal dilatation. The main portal vein is patent. Gallbladder: There are shadowing calcified gallstones with a gallstone seen in the region of the gallbladder neck. The gallbladder is mildly distended. The wall is thickened and edematous, measuring up to 4 mm. No pericholecystic fluid is seen. A sonographic Brooks's sign is reportedly absent. The common bile duct measures up to 0.5 cm in diameter. Pancreas: Not well visualized due to overlying bowel gas. Right kidney: Survey images of the right kidney demonstrate normal size and echotexture. There is no hydronephrosis. Ascites: None. IMPRESSION: 1. Cholelithiasis within an abnormal appearing distended gallbladder. The gallbladder wall is thickened and edematous. Although a sonographic Brooks's sign is reportedly absent, the findings are concerning for acute cholecystitis. Surgical evaluation is advised. If this does not fit the clinical presentation a nuclear hepatobiliary scan could be considered for further assessment. 2. There is no intra or extrahepatic biliary ductal dilatation. CT abd pelvis IV con only CLINICAL HISTORY: R sided abd pain TECHNIQUE: Helical axial images of the abdomen and pelvis were obtained and displayed. Automated dose lowering techniques and/or adjustment according to patient size were utilized for this exam. This exam was performed with intravenous contrast. CT DOSE: 824.96 mGy.cm COMPARISON: None available at the time of this dictation. FINDINGS: Lower chest: No acute abnormality Liver: Unremarkable. No focal lesions are seen. Gallbladder and biliary tree: There is thickening of the gallbladder wall measuring up to 3 mm. Pericholecystic fluid is seen. Gallstone is seen in the gallbladder neck. No intra- or extrahepatic biliary ductal dilation. Pancreas: Unremarkable, no focal lesions. Spleen: Unremarkable. Adrenals: Unremarkable. Kidneys and ureters: Unremarkable. Bladder: Unremarkable. Reproductive organs: Unremarkable. Bowel: Unremarkable appearance of the bowel. The appendix is normal. Lymph nodes Retroperitoneal: Unremarkable. Mesenteric: Unremarkable. Pelvic: Unremarkable. Peritoneum: Normal. Vessels: Unremarkable. Abdominal wall: Unremarkable. Bones: Unremarkable. IMPRESSION: Findings are compatible with acute cholecystitis, with color wall thickening, stone in the gallbladder neck, and pericholecystic fluid.
[2021-12-04] MEDS ORDERED: NEOSTIGMINE METHYLSULFATE 1 MG/ML 10ML VIAL ONE (14:26)
[2021-12-04] MEDS ORDERED: LARYING-O-JET KIT (LTA) ONE (14:26)
[2021-12-04] MEDS ORDERED: KETOROLAC 30 MG/ML VIAL ONE (14:26)
[2021-12-04] MEDS ORDERED: PROPOFOL IV EMULSION 10 MG/ML 20 ML VIAL IV ONE (14:26)
[2021-12-04] MEDS ORDERED: ONDANSETRON INJ 2 MG/ML 2 ML VIAL ONE (14:26)
[2021-12-04] MEDS ORDERED: ROCURONIUM BROMIDE 10 MG/ML 5 ML VIAL IV ONE (14:26)
[2021-12-04] MEDS ORDERED: LIDOCAINE 2% 2 ML VIAL/AMP(20MG/ML) INFIL ONE (14:26)
[2021-12-04] MEDS ORDERED: GLYCOPYRROLATE 0.2 MG/ML VIAL ONE (14:26)
[2021-12-04] MEDS ORDERED: DEXAMETHASONE SOD INJ 4 MG/ML VIAL ONE (14:26)
[2021-12-04] MEDS ORDERED: fentaNYL citrate 100 MCG/2 ML VIAL ONE ×2 (14:27)
[2021-12-04] MEDS ORDERED: MIDAZOLAM HCL 1 MG/ML 2ML VIAL ONE (14:27)
--- NOTE | 2021-12-04 14:29 | History & Physical Bridge Note ---
Date of Service December 04, 2021 History & Physical Bridge Note I have examined the patient, reviewed the History & Physical and in the interval since the performance of the History & Physical I have noted the following changes of clinical significance: no changes noted
[2021-12-04] MEDS ORDERED: ceFAZolin 2000MG 2,000 MG/15 ML SYR IV SCH (14:30)
[2021-12-04] MEDS ORDERED: ATROPINE SULFATE 0.1 MG/ML 10ML SYR IV PRN (14:39)
[2021-12-04] MEDS ORDERED: ePHEDrine sulfate 50 MG/ML AMP IV PRN (14:39)
--- NOTE | 2021-12-04 14:39 | Anesthesiology Consultation ---
Date of Service December 04, 2021 Assessment & Plan Chart Review Chart Review: Acceptable Risk for Surgery and Patient NOT seen in Pre Admission Testing Consults Requested none ASA ASA1 Proposed Anesthesia Anesthesia Type: General Risk / Benefits Reviewed With: PT / POA / Parent / Guardian, Accepts Plan and Informed Consent Obtained History Surgery Operation Date: 12/04/21 11:10 Proposed Procedures p Laparoscopic Cholecystectomy - Knidra Castle MD Height/Weight Height: 5 ft 5 in Weight: 98.3 kg Allergies Allergy/AdvReac Type Severity Reaction Status Date / Time No Known Allergies Allergy Verified 12/03/21 22:48 Medications Home Medications Medication Instructions Recorded Confirmed Last Taken prenat.vits,hai,pan-ioun-sfrvq 1 tab PO DAILY 10/20/21 12/03/21 12/03/21 acetaminophen 500 mg tablet 1,000 mg PO Q6 PRN 12/03/21 12/03/21 12/03/21 (Tylenol Extra Strength) Active Medications Generic Name Dose Route Start Last Admin Trade Name Freq PRN Reason Stop Dose Admin Ampicillin Sodium/Sulbactam 104 mls @ 200 mls/hr 12/04/21 07:00 12/04/21 13:22 Sodium 1,500 mg/ Sodium IV 12/14/21 06:59 200 mls/hr Chloride Q6H VINH Administration Protocol Lactated Ringer's 1,000 mls @ 100 mls/hr 12/04/21 06:37 12/04/21 13:56 Lr IV 01/03/22 06:36 0 mls/hr .Q10H VINH Infusion NPO Date Last Intake of Fluids: 12/03/21 Time Last Intake of Fluids: 22:00 Date Last Intake of Solids: 12/03/21 Time Last Intake of Solids: 16:00 Past Medical History Medical History Foot fracture, left Exercise / Class Metabolic Activity II 4-5 Yardwork/Stairs/Walk up hill Past Family History Family History Grandfather (Maternal) Diabetes Father Heart disease Past Surgical History Surgical History No significant past surgical history Past Anesthesia History No Hx of Anesthesia Complications and No Family Hx of Anesthesia Complications History of PONV No Hx of PONV and No Hx of Motion Sickness Social History Smoking Status: Never smoker Hx Alcohol Use: No Hx Substance Use: No substance use type: does not use Physical Exam Vital Signs Last Vital Signs Temp 36.5 C 12/04/21 13:20 Pulse 66 12/04/21 13:20 Resp 18 12/04/21 13:20 BP 93/74 L 12/04/21 13:20 Pulse Ox 97 12/04/21 13:20 ENMT Mouth: no dentition abnormality Thyromental Distance: > or= 3.5 Finger Breadths Mallampati Class: II Neck normal visual inspection Respiratory normal respiratory effort Auscultation: lungs clear to auscultation bilaterally Cardiovascular Rate/Rhythm: regular rate and regular rhythm Psychiatric Orientation: alert Testing Laboratory Results 12/03/21 22:23 12/03/21 22:23 Urine Color Yellow 12/04/21 01:29 Urine Appearance Clear (Clear) 12/04/21 01:29 Urine pH 7.0 (4.5-7.5) 12/04/21 01:29 Ur Specific [place] 1.016 (1.000-1.030) 12/04/21 01:29 Urine Protein Negative (Negative) 12/04/21 01:29 Urine Glucose (UA) Negative (Negative) 12/04/21 01:29 Urine Ketones 1+ (Negative) H 12/04/21 01:29 Urine Nitrite Negative (Negative) 12/04/21 01:29 Ur Leukocyte Esterase Trace (Negative) H 12/04/21 01:29 Urine WBC (Auto) 1-5 /hpf (0-5) 12/04/21 01:29 Urine RBC (Auto) 0-4 /hpf (0-4) 12/04/21 01:29 U Hyaline Cast (Auto) 0 /lpf (0-5) 12/04/21 01:29 U Epithel Cells (Auto) 10-20 /lpf (0-5) H 12/04/21 01:29 Urine Bacteria (Auto) Negative (Negative) 12/04/21 01:29
[2021-12-04] MEDS ORDERED: BACITRACIN OINT 15 GM TUBE ONE (14:48)
[2021-12-04] MEDS ORDERED: BUPIVACAINE 0.5 % 5 MG/1 ML MPF 30ML VIAL ONE (14:48)
[2021-12-04] MEDS ORDERED: LIDOCAINE 1% LOCAL 20 ML VIAL ONE (14:48)
--- NOTE | 2021-12-04 16:20 | Post Operative Brief Note ---
Immediate Post Op Note v1 Date of Surgery December 04, 2021 Pre & Post Diagnosis Operation Date: 12/04/21 11:10 Pre-Op Diagnosis: Acute Cholecystitis, cholelithiasis Post-Op Diagnosis: Acute Cholecystitis, cholelithiasis I identified the patient and participated in the time-out.: Yes Procedure Operation Date: 12/04/21 11:10 Actual Procedures p Laparoscopic Cholecystectomy(Not Applicable) - Kindra Castle MD Surgeon Kindra Castle MD Motor Vehicle Salesperson surgical sales representative Estimated Blood Loss 20 Findings Consistent with Post-Op Diagnosis Fluids 1200ml Specimens gallbladder Anesthesia Type General Complications none Disposition Accompanied Patient To Recovery: Yes
[2021-12-04] MEDS: fentaNYL citrate 100 MCG/2 ML VIAL IV PRN ×2 (16:48→16:53)
--- NOTE | 2021-12-04 17:34 | Anesthesiology Progress Note ---
Date of Service December 04, 2021 Anesthesia Post Procedure Vital Signs Vital Signs: Temp Pulse Pulse Pulse Resp BP BP 12/04/21 17:15 36.2 C L 58 L 13 12/04/21 17:05 58 L 12 12/04/21 16:55 69 17 12/04/21 16:45 68 12 12/04/21 16:35 68 17 12/04/21 16:29 36.0 C L 93 H 21 12/04/21 13:20 36.5 C 66 18 93/74 L 12/04/21 08:42 36.7 C 68 18 94/60 L 12/04/21 06:00 18 92/57 L 12/04/21 04:30 18 92/54 L 12/04/21 04:00 18 92/52 L 12/04/21 03:30 65 18 96/52 L 12/04/21 02:22 84 18 99/63 L 12/04/21 00:23 78 18 12/04/21 00:21 79 18 101/71 12/03/21 22:14 37.3 C 79 18 110/75 BP Pulse Ox 12/04/21 17:15 109/73 99 12/04/21 17:05 108/75 99 12/04/21 16:55 116/83 98 12/04/21 16:45 126/86 96 12/04/21 16:35 117/81 99 12/04/21 16:29 129/73 96 12/04/21 13:20 97 12/04/21 08:42 98 12/04/21 06:00 96 12/04/21 04:30 97 12/04/21 04:00 95 12/04/21 03:30 96 12/04/21 02:22 99 12/04/21 00:23 98 12/04/21 00:21 97 12/03/21 22:14 100 Pain Intensity Upper Abdomen: Pain Intensity: 5 Lower Back: Pain Intensity: 3 Transfer of Care Handoff Completed per policy Notes Mental Status: alert / awake / arousable and participated in evaluation Patient Amnestic to Procedure: Yes Nausea / Vomiting: adequately controlled Pain: adequately controlled Airway Patency, RR, SpO2: stable & adequate BP & HR: stable & adequate Hydration State: stable & adequate Anesthetic Complications: no major complications apparent
[2021-12-04] MEDS: ACETAMINOPHEN 500 MG TAB PO PRN (19:59)
[2021-12-04] MEDS: oxyCODONE/ACETAMINOPHEN 5mg/325mg TAB PO PRN (22:20)
[2021-12-05] MEDS: LACTATED RINGER'S 1,000 ML IV SCH (03:16)
[2021-12-05] MEDS: AMPICILLIN/SULBACTAM SOD 1,500 MG in 0.9 % SODIUM CHLORIDE 100 ML IV SCH ×2 (03:21→05:56)
[2021-12-05] MEDS: oxyCODONE/ACETAMINOPHEN 5mg/325mg TAB PO PRN (04:35)
--- NOTE | 2021-12-05 06:25 | Operative Report (OR) ---
DATE OF PROCEDURE: 12/04/2021. PREOPERATIVE DIAGNOSES: Acute cholecystitis, cholelithiasis. POSTOPERATIVE DIAGNOSES: Acute cholecystitis, cholelithiasis. OPERATION: Laparoscopic cholecystectomy. SURGEON: Kindra Castle MD ANESTHESIA: General. ESTIMATED BLOOD LOSS: About 10 mL. FINDINGS: Acute cholecystitis, cholelithiasis. COMPLICATIONS: None. INDICATIONS FOR THE PROCEDURE: This is a 26-year-old female who was admitted to the hospital for acu te abdominal pain. The patient had an ultrasound that showed acute cholecystitis with cholelithiasis . I recommended to do laparoscopic cholecystectomy, possible open, possible cholangiogram. I did ta lk to the patient and the patient's about the benefits, risks, and alternate procedures. I i ndicated the risks may include, but not limited to, such as bleeding, infection, injury to other orga ns, incisional hernia, may need ERCP. The patient and the patient's understood and they agre ed to proceed with procedure. The patient signed informed consent and I answered all questions. DETAILS OF PROCEDURE: After we identified the patient and verified the procedure, we brought in the patient to the OR, put the patient in the supine position on the OR table. The patient received SCDs on bilateral legs to prevent DVT. Also, the patient received IV antibiotic for prophylactic antibio tic and the patient received general anesthesia without difficulty. The abdomen was prepped and drap ed in routine sterile fashion. After timeout, I injected the local anesthesia by using 1% lidocaine mixed with 0.5% Marcaine just above the umbilicus, then I made a small incision just above the umbili cus, opened fascia, opened peritoneum. Under direct vision, put a Randall trocar in, connected to CO2 to create pneumoperitoneum, flow rate at 6 liters per minute, pressure not more than 14 mmHg. Once we got a nice pneumoperitoneum, we put a camera in, looked around the abdomen. It showed normal finding on the liver, however, the gallbladder showed acute cholecystitis with gallbladder wall thic kening, edema. Once we confirmed the diagnosis, we put another three 5 mm trocars on the right upper quadrant. Once all trocars in, we put a grasper to hold the base of gallbladder, put in the directi on to the diaphragm, another grasper to hold the pouch of gallbladder, put the latter to expose the t riangle of Calot. The cystic duct was identified and mobilized. I put two 5 mm metal clips on the p roximal cystic duct, one on the distal cystic duct, then used scissors for transection of cystic duct , rechecked, no bile leak. The cystic artery was identified and mobilized. I put two 5 mm metal cli ps on the proximal cystic artery, one on the distal cystic artery, then used a scissor for transectio n of cystic artery, rechecked, no active bleeding. Then, we used the Bovie to take down gallbladder from liver bed; rechecked, no active bleeding, no bile leak from liver bed. Then, we removed gallbla dder through the catch bag. Then, we reinserted the Randall trocar in, connected to CO2 to create pneumoperitoneum, again looked a round the abdomen, no active bleeding, no bile leak from liver bed. Then, we removed all trocars und er direct vision. No active bleeding from the trocar site. Pneumoperitoneum was released. Then I c losed the umbilical incision fascial layer by using 0 Vicryl [id number] x2, closed subcutaneous layer by using 2-0 Vicryl interruptedly, closed skin by using 4-0 Vicryl continuous running, closed a nother three 5 mm trocar sites skin only by using 4-0 Vicryl. Then, we put the dressing on. The pat ient tolerated the procedure well. All the instrument, needle and sponge counts were correct x2 at t he end of the case. The patient was transferred to recovery room in stable condition. The specimen was sent to pathology. After the procedure, I did talk to the patient and the patient's abou t the OR finding and the procedure we did, they understand. Job ID: [id number]
[2021-12-05 07:28] LABS: Hemoglobin 11.4 g/dL (12.0-16.0); Immature Granulocytes # (auto) 0.02 K/uL (0.00-0.02); Immature Granulocytes % (auto) 0.3 %; Lymphocytes # (auto) 0.96 K/uL (1.2-3.4); Lymphocytes % (auto) 12.4 %; Mean Corpuscular Hemoglobin 29.2 pg (25-34); Mean Corpuscular Hgb Conc 32.6 g/dL (32-36); Mean Corpuscular Volume 89.7 fL (80-100); Mean Platelet Volume 10.8 fL (7.4-10.4); Monocytes # (auto) 0.24 K/uL (0.11-0.59); Monocytes % (auto) 3.1 %; Neutrophils # (auto) 6.51 K/uL (1.4-6.5); Neutrophils % (auto) 84.2 %; Platelet Count 253 K/uL (130-400); RDW Coefficient of Variation 13.6 % (11.5-14.5); RDW Standard Deviation 44.6 fL (36.4-46.3); White Blood Count 7.73 K/uL (4.8-10.8)
[2021-12-05 08:16] LABS: Albumin Globulin Ratio 1.4 (0.9-2); Albumin Level 3.8 gm/dl (3.4-5.0); Bilirubin,Total 0.3 mg/dl (0.2-1.0); Calcium 8.6 mg/dl (8.5-10.1); Est GFR (African American) 143.8 ml/min; Globulin 2.7 gm/dl (2.5-4.0); Total Protein 6.5 gm/dl (6.0-8.3)
[2021-12-05] MEDS ORDERED: PRENATAL VITAMIN 1 TAB PO SCH (09:00)
[2021-12-05] MEDS: ACETAMINOPHEN 500 MG TAB PO PRN (11:48)
--- NOTE | 2021-12-05 14:04 | Discharge Summary ---
Date of Service December 05, 2021 Admission HPI Per Admitting Provider The patient is a 26-year-old female with no significant past medical history, presents the emergency department with a chief complaint of right upper quadrant pain that radiates to her back. Patient states she has had this pain now for several weeks, she was previously evaluated in the emergency department and discharged home following negative CT angiography of the chest. Patient states that the pain has continued, she had a severe episode tonight when she was in the shower and therefore her contacted 911 for her to be transported to the emergency department. She has had multiple episodes of nausea and vomiting during the past several weeks. On arrival here to the ED she is in mild discomfort secondary to right upper quadrant pain but otherwise she is hemodynamically stable on my initial assessment. I ( Kindra Castle MD ) reviewed pt's H/P, labs and U/S and CT scan with pt and her , Principal Diagnosis Acute calculus cholecystitis Discharge Exam Constitutional WD/WN, vitals as above no acute distress and not ill appearing Neck normal visual inspection and trachea midline Respiratory normal respiratory effort; no respiratory distress Gastrointestinal (Abdomen) Inspection/Auscultation: abdomen normal to inspection and + abdominal surgical incision (Covered with clean and dry dressings); abdomen not distended Percussion/Palpation: + abdomen tender (At incision sites) and abdomen soft; no guarding and abdomen not rigid Skin no rashes, warm and dry Psychiatric Orientation: alert and oriented x 3 Discharge Data Allergies Allergy/AdvReac Type Severity Reaction Status Date / Time No Known Allergies Allergy Verified 12/03/21 22:48 Consultations 12/04/21 04:41 ED Decision to Admit Stat Procedures Performed Operation Date: 12/04/21 11:10 Actual Procedures p Laparoscopic Cholecystectomy(Not Applicable) - Kindra Castle MD Ordered Studies 12/03/21 23:15 US gallbladder Urgent 12/04/21 02:50 CT abd pelvis IV con only Urgent Hospital Course (1) Acute cholecystitis: Patient was admitted to the medical/surgical floor from the emergency department and kept n.p.o. started on IV fluids started on IV antibiotics and pain management. Patient was evaluated by Dr. Castle and elected to proceed to the operating room for laparoscopic cholecystectomy. Patient was found to have acute cholecystitis and tolerated procedure well she was transferred back to the medical surgical floor for postoperative care. Her diet was advanced to clear liquids, IV fluids and IV antibiotics were continued postop. Pain medications were ordered as needed for pain. She was evaluated on postop day #1 having some incisional pain which oral Percocet and Tylenol were helping control the pain. She was tolerating clear liquids without nausea or vomiting. Her was on the phone while we were examining her and helps with translation. All discharge instructions were reviewed with patient and she was doing well so that she could be discharged home on postop day #1 in stable condition Total Time Total Time Spent Total Time Spent (In Minutes): 20 Total Time Includes: Examination of the Patient, Discharge Planning and Medication Reconciliation Discharge Plan Discharge Items Patient Disposition: Home - Self-Care Reason For Visit: ACUTE CHOLECYSTITIS Discharge Diagnosis: Acute cholecysitis Activity: Per Instructions section Non-emergency contact: Surgeon Call non-emergency contact if: you have any medication questions, your pain is not controlled, your pain is worsening, your pain is concerning for you, you have a fever, your temperature is above 101, your wound has increased redness, your wound has increased drainage and your wound pain has increased Follow-up/Referrals: Nora Stanley MD [Primary Care Provider] - Kindra Castle MD [Physician] - 12/17/21 1:45 pm Diet: Regular Addtl Attending Provider Instructions: Post-Surgical ~Discharge Instructions Activity Recommendations: - lifting limitation: (10 pounds for 4 weeks), - exercise/sex/sports limit: (nonstrenuous for 2 weeks), - driving or machine use limit: (none for 1 week), - Shower/bathe limit: (december shower beginning Thursday) Diet: - Resume previous diet SPECIAL CARE INSTRUCTIONS: - May shower on Thursday. Sponge bath and wash hair in meantime. On Thursday, remove outer dressings and shower. Let water run over area and pat dry. - Leave steri strips on for one week and then remove. - Call the surgeon's office with any questions or concerns - - (ex. temperature higher than 101 degrees F, excessive bleeding or pain). MEDICATIONS: - Resume previous medications unless instructed otherwise by your surgeon. - Alternate extra strength Tylenol and Ibuprofen as needed for pain -650 mg Tylenol every 6 hours - Ibuprofen 600 mg every 6 hours as needed (take with food) - Take ifbo-zdj-sdichts stool softener (Colace) daily to avoid straining/constipation FOLLOW UP VISIT: - If not already scheduled, please call the office to schedule a two week f ollow-up appointment. Office number Pending Studies at Discharge: Yes (gallbladder pathology, will be reviewed at follow-up visit) Stand-Alone Forms: [facility], Work/School Release, Smoking Cessation Medications and DC Order Prescriptions: Continued prenat.vits,hai,rtb-neaj-skqex Tablet 1 tab PO DAILY RF: 0 acetaminophen [Tylenol Extra Strength] 500 mg Tablet 1,000 mg PO Q6 PRN (Reason: Pain) RF: 0 Discharge Orders: Discharge Order (Routine); Ordered 12/05/21 Ordered By: Hemalatha Glasgow/Other Patient Handouts: Cholecystectomy Admission Data Admit Date/Time: 12/04/21 04:44 Attending Provider: Jaja Salmon Admit Provider: Jaja Salmon Primary Care Provider: Nora Stanley Other Providers: Jaja Salmon Other Interventions: Discharge Summary Assessment (RN) Last Done: 12/05/21 11:20
== END 2021-12-05 12:29 | disposition home or self-care (01) ==
LOC: ED 22:05 → 3W 22:05

== ENCOUNTER 2024-04-29 12:15 | Inpatient (IN) ==
--- NOTE | 2024-04-29 12:34 | History & Physical Report ---
Date of Service April 29, 2024 Assessment & Plan (1) Abnormality in heart rate/rhythm, antepartum condition or com plication: Plan: New onset Arrhythmia at term: 28 years, at 37+3 weeks with apparently new arrhythmia. Difficult to get at least 2 min of normal baseline as the patient is obese, reluctant to remain in positions that favor picking up fetus on the external monitor, and the tracing jumps back and forth between 150s and 80s often even when well traced. The majority of strip is in 150s with visible variability that suggests FHT Cat 1. Good movement noted and per patient is consistent with what she feels "any other day," suggesting further that status is reassuring. - Mothers vitals stable: P: 104, BP: 126/84 mm Hg, SPO2 97% at RA - Significant H/O Arrhythmia in Mom's family. No H/O any other chronic disease in mother. - Reviewing recent USG : EFW=46% AC=78% FL : 4% CfDNA offered but declined Consulted with expert from [place]: Dr. Wick recommends induction of labor at this time, here at [facility]. Discussed with on-call Peds Dr. Sepulveda as well and he voices comfort with delivering at [facility]. -Planned for Admission Pitocin, epidural on request, will place FSE once rupture is completed. Also discussed with patient and FOB that they have the option of a section, which would bypass an anticipated many hours of labor during which reassuring status could be difficult to prove because of the arrhythmia. They decline a section vigorously and prefer induction regardless of this information. History of Present Illness Primary Care Provider: Nora Stanley MD 28 years, at 37+3, sent from office to L and D for observation and NST monitoring. FHR in office found irregular in NST. Malawian speaking: Offered gas distribution supervisor, patient understood me asking and answered no herself, declining. helped interpreting, and states Krysta understands well but has some difficulty expressing herself fluidly in Japanese. They do not feel she needs formal accounting manager cpa even for medical discussion. No abdominal contraction, denies leakage of fluid, active current movement. P1: FTND Risk Factor this : Obesity GBS: Neg BG: A positive Last USG: EFW=46% AC=78% FL : 4%( CfDNA offered but declined) Last NST (04/22): Reactive; No arrhythmia mentioned H/O arrhythmia in maternal side: Father and Grandfather + PMH: Reviewed Medication History : reviewed Allergies Allergy/AdvReac Type Severity Reaction Status Date / Time No Known Allergies Allergy Verified 04/29/24 11:49 Home Medications Medication Instructions Recorded Confirmed Type acetaminophen [Tylenol] PO PRN 10/02/23 04/29/24 History [id number] PO 10/02/23 04/29/24 History [] ferrous sulfate 325 mg (65 mg 325 mg PO DAILY 03/25/24 04/29/24 History iron) tablet (Feosol) Patient History Medical History Acute cholecystitis Foot fracture, left Supervision of normal intrauterine in primigravida Surgical History S/P cholecystectomy Family History Grandfather (Maternal) Diabetes Father Heart disease Aunt Breast cancer Denies family history of Ovarian cancer Prostate cancer Colorectal cancer Social History Smoking Status: Never smoker Second Hand Exposure: No; Do You Dip or Chew Tobacco: No; Hx Alcohol Use: No Hx Substance Use: No Preferred Language: Malawian Communication Ability: Effective Communication Ability Comment: and IPAD Communication Tools: IPad and Other Visual Impairment: Partially Limited Sizing End Bander Required: Yes and No Beliefs That Will Affect Care: None marital status: marital status details: Junior Maloney (29 Current Living Situation: Spouse Current Living Situation Comment: lives with , daughter, no pets current occupational status: employed current occupation: NA Assistive Devices: None OB History P1: FTND Review of Systems As per HPI Physical Exam Physical Exam: General: Alert and oriented. No acute distress. CV: Regular rate and rhythm. No murmurs. Respiratory: CTA bilaterally. No rhonchi, wheezes, or crackles. No increased work of breathing. Ob exam: Ultrasound at bedside confirms cephalic, subjectively adequate fluid, visible heartbeat of fetus correlating with irregularly irregular audible beats that range from 150s to 80s. Cervix 2/50/-2/soft/mid EFW 6-7lb Recent growth scan reviewed. No LOF or VB. Lower extremities: No LE edema. No deep calf pain. Results & Data Vital Signs (Past 12 Hours) Vital Signs Pulse Pulse Ox 04/29/24 12:24 111 H 04/29/24 12:22 103 H 97 Resident Activity Tracking Resident Involvement: Resident Care Provided Care Provided: OB Delivery
[2024-04-29] MEDS ORDERED: LIDOCAINE 1% LOCAL 20 ML VIAL INFIL PRN (13:05)
[2024-04-29] MEDS: LACTATED RINGER'S 1,000 ML IV PRN (13:38)
[2024-04-29] MEDS: OXYTOCIN 30 UNITS/NSS 30 UNITS/500 ML BAG IV PRN (13:40)
[2024-04-29 14:13] LABS: Hematocrit (blood only) 31.9 % (37.0-47.0); Hemoglobin 10.2 g/dl (12.0-16.0); Mean Corpuscular Hemoglobin 29.1 pg (25.0-34.0); Mean Corpuscular Volume 90.9 fL (80.0-100.0); Mean Platelet Volume 11.5 fL (9.4-12.4); Platelet Count 142 K/uL (130-400); RDW Standard Deviation 52.5 fL (36.4-46.3); Red Blood Count 3.51 M/uL (4.20-5.40); White Blood Count 8.84 K/ul (4.8-10.8)
[2024-04-29] MEDS: fentANYL 2 MCG/ML BUPIVacaine 0.125%-NSS 100ML BAG ONE (19:51)
[2024-04-29] MEDS: SODIUM CHLORIDE 0.9% PF INJ 10 ML VIAL ONE (19:51)
[2024-04-29] MEDS: LIDOCAINE 2%/EPINEPHRINE 1:200,000 20 ML PF ONE (19:51)
[2024-04-29] MEDS ORDERED: NALOXONE HCL 1 MG in SODIUM CHLORIDE 0.9% 1,000 ML IV PRN (19:54)
[2024-04-29] MEDS ORDERED: ePHEDrine sulfate 50 MG/ML AMP IV PRN (19:54)
[2024-04-29] MEDS ORDERED: NALOXONE HCL 0.4 MG/1 ML VIAL/CARP IV PRN (19:54)
[2024-04-29] MEDS ORDERED: BUPIVACAINE 0.25% PF 30 ML VIAL EPI PRN (19:54)
[2024-04-29] MEDS ORDERED: fentaNYL citrate PF 100 MCG/2 ML VIAL EPI PRN (19:54)
[2024-04-29] MEDS ORDERED: diphenhydrAMINE 50 MG/ML VIAL IV PRN (19:54)
[2024-04-29] MEDS ORDERED: NALBUPHINE HCL INJ 10 MG/ML AMP IV PRN (19:54)
[2024-04-29] MEDS ORDERED: ROPIVACAINE 0.5% PF 5 MG/ML 20 ML VIAL EPI PRN (19:54)
[2024-04-29] MEDS ORDERED: LIDOCAINE 2% MPF LOCAL 5 ML VIAL EPI PRN (19:54)
[2024-04-29] MEDS ORDERED: SODIUM CHLORIDE 0.9% PF INJ 10 ML VIAL EPI PRN (19:54)
[2024-04-29] MEDS ORDERED: PROMETHAZINE 6.25 MG/50.25 ML BAG IV PRN (19:54)
[2024-04-29] MEDS ORDERED: fentANYL 2 MCG/ML BUPIVacaine 0.125%-NSS 100ML BAG EPI PRN (19:54)
[2024-04-29] MEDS: fentaNYL citrate PF 100 MCG/2 ML VIAL ONE (19:55)
[2024-04-29] MEDS: BUPIVACAINE 0.25% PF 30 ML VIAL ONE (19:55)
--- NOTE | 2024-04-29 19:55 | Anesthesiology Consultation ---
Date of Service April 29, 2024 Assessment & Plan Chart Review Chart Review: Patient NOT seen in Pre Admission Testing and Acceptable Risk for Labor Epidural Consults Requested none ASA ASA2 Proposed Anesthesia Anesthesia Type: Labor Epidural Risk / Benefits Reviewed With: PT / POA / Parent / Guardian, Accepts Plan and Informed Consent Obtained History Height/Weight Height: 5 ft 5.5 in Weight: 111.856 kg Allergies Allergy/AdvReac Type Severity Reaction Status Date / Time No Known Allergies Allergy Verified 04/29/24 11:49 Medications Home Medications Medication Instructions Recorded Confirmed Last Taken ferrous sulfate 325 mg (65 mg 325 mg PO DAILY 03/25/24 04/29/24 04/28/24 iron) tablet (Feosol) vits no.124-ferrous fum 1 tab PO DAILY 04/29/24 04/29/24 04/28/24 27 mg iron-folic acid 800 mcg tablet ( Vitamin) Active Medications Generic Name Dose Route Start Last Admin Trade Name Freq PRN Reason Stop Dose Admin Oxytocin 30 units in 500 mls @ 10 mls/hr 04/29/24 13:05 04/29/24 19:07 Pitocin 30 Units/Nss IV 05/01/24 13:04 0.6 units/hr .Q24H PRN 10 mls/hr Labor Induction/Augmentation Titration Protocol 0.6 UNITS/HR Lactated Ringer's 1,000 mls @ 125 mls/hr 04/29/24 13:05 04/29/24 18:51 Lr IV 05/01/24 13:04 999 mls/hr .Q8H PRN Administration L&D Protocol Protocol Past Medical History Medical History Acute cholecystitis Foot fracture, left Supervision of normal intrauterine in primigravida Exercise / Class Metabolic Activity II 4-5 Yardwork/Stairs/Walk up hill Past Family History Family History Grandfather (Maternal) Diabetes Father Heart disease Aunt Breast cancer Denies family history of Ovarian cancer Prostate cancer Colorectal cancer Past Surgical History Surgical History S/P cholecystectomy Past Anesthesia History No Hx of Anesthesia Complications and No Family Hx of Anesthesia Complications History of PONV No Hx of PONV and No Hx of Motion Sickness Social History Smoking Status: Never smoker Do You Dip or Chew Tobacco: No Hx Alcohol Use: No Hx Substance Use: No substance use type: does not use Physical Exam Vital Signs Last Vital Signs Temp 36.8 C 04/29/24 19:10 Pulse 108 H 04/29/24 19:52 Resp 18 04/29/24 19:10 BP 90/54 L 04/29/24 19:51 Pulse Ox 97 04/29/24 19:52 ENMT Mouth: no dentition abnormality Thyromental Distance: > or= 3.5 Finger Breadths Mallampati Class: II Neck normal visual inspection Respiratory normal respiratory effort Auscultation: lungs clear to auscultation bilaterally Cardiovascular Rate/Rhythm: regular rate and regular rhythm Psychiatric Orientation: alert Testing Laboratory Results 04/29/24 13:48 Blood Type A Positive 04/29/24 13:48 Antibody Screen NEGATIVE 04/29/24 13:48
[2024-04-29] MEDS: ONDANSETRON INJ 2 MG/ML 2 ML VIAL IV PRN (20:16)
--- NOTE | 2024-04-29 20:17 | Labor Progress Brief Note ---
Date of Service April 29, 2024 Subjective Comfortable with epidural, shivering but not cold. Assessment & Plan (1) Abnormality in heart rate/rhythm, antepartum condition or complication: Plan: IOL for new onset arrhythmia at 37+ weeks. Arrhythmia has spontaneously reverted to normal FHT and normal regular pattern. Induction progressing with good cervical change, now ROM, and epidural. Anticipate . Admission and Anticipated Discharge Date Admission Date: April 29, 2024 Physical Exam Genitourinary: /-2 AROM for copious clear fluid Vertex FSE applied, tracing well. [place] Q2-3 Results & Data Vital Signs (Past 12 Hours) Vital Signs Temp Pulse Resp BP Pulse Ox 04/29/24 20:12 91 H 100 04/29/24 20:11 90 102/61 04/29/24 20:09 93 H 89 L 04/29/24 20:07 87 100 04/29/24 20:03 91 H 92 04/29/24 20:02 95 H 99 04/29/24 20:01 86 106/66 04/29/24 19:59 91 H 102/56 L 04/29/24 19:58 93 H 105/59 L 04/29/24 19:57 98 04/29/24 19:57 95 H 04/29/24 19:57 90 94 04/29/24 19:56 101 H 101/55 L 04/29/24 19:54 99 H 115/58 L 04/29/24 19:52 108 H 97 04/29/24 19:51 100 H 90/54 L 04/29/24 19:49 93 H 91/51 L 04/29/24 19:47 99 04/29/24 19:47 92 H 04/29/24 19:47 94 H 97/53 L 04/29/24 19:42 87 100 04/29/24 19:37 96 H 95 04/29/24 19:32 95 H 99 04/29/24 19:31 95 H 94 04/29/24 19:27 88 99 04/29/24 19:22 97 H 97 04/29/24 19:17 85 99 04/29/24 19:12 82 98 04/29/24 19:10 18 04/29/24 19:10 98.2 F 18 04/29/24 19:07 84 100 04/29/24 19:02 87 93 04/29/24 18:55 88 98 04/29/24 18:53 87 87 L 04/29/24 18:50 100 04/29/24 18:50 93 H 04/29/24 18:50 86 114/78 04/29/24 17:30 16 04/29/24 17:30 16 04/29/24 17:00 18 04/29/24 17:00 18 04/29/24 16:30 18 04/29/24 16:30 18 04/29/24 16:07 98.2 F 86 18 114/79 04/29/24 16:00 18 04/29/24 16:00 18 04/29/24 15:32 97 H 98 04/29/24 15:27 89 98 04/29/24 15:22 97 H 98 04/29/24 15:17 105 H 97 04/29/24 15:12 97 H 99 04/29/24 15:07 89 98 04/29/24 15:02 96 H 99 04/29/24 14:57 94 H 98 04/29/24 14:52 90 98 04/29/24 14:51 96 H 93 04/29/24 14:47 94 H 99 04/29/24 14:45 92 H 103/63 04/29/24 14:42 93 H 96 04/29/24 14:37 90 96 04/29/24 14:32 92 H 96 04/29/24 14:30 16 04/29/24 14:30 16 04/29/24 14:27 94 H 96 04/29/24 14:22 128 H 100 04/29/24 14:12 97 H 97 04/29/24 14:07 100 H 97 04/29/24 14:02 100 H 97 04/29/24 13:57 95 H 99 04/29/24 13:52 96 H 97 04/29/24 13:50 95 H 92 04/29/24 13:47 97 H 95 04/29/24 13:42 93 H 98 04/29/24 13:37 93 H 98 04/29/24 13:32 97 H 95 04/29/24 13:30 99 H 89 L 04/29/24 13:27 98 H 96 04/29/24 13:22 100 09/20/24 13:22 99 H 04/29/24 13:22 106 H 94 04/29/24 13:17 93 H 93 04/29/24 13:16 98 H 92 04/29/24 13:12 99 H 98 04/29/24 13:10 114 H 92 04/29/24 13:07 103 H 97 04/29/24 13:02 104 H 99 04/29/24 12:52 112 H 97 04/29/24 12:47 104 H 97 04/29/24 12:46 98.2 F 18 04/29/24 12:42 104 H 96 04/29/24 12:37 108 H 97 04/29/24 12:32 107 H 96 04/29/24 12:27 107 H 99 04/29/24 12:24 111 H 92 04/29/24 12:22 103 H 97 Coding Level of Care Code None Diagnoses Abnormality in heart rate/rhythm, antepartum condition or complication O36.8390
[2024-04-29] MEDS: BUPIVACAINE 0.25% PF 30 ML VIAL EPI STA (20:23)
[2024-04-29] MEDS: fentaNYL citrate PF 100 MCG/2 ML VIAL EPI STA (20:23)
[2024-04-29] MEDS: SODIUM CHLORIDE 0.9% PF INJ 10 ML VIAL EPI STA (20:24)
[2024-04-29] MEDS: LIDOCAINE 2%/EPINEPHRINE 1:200,000 20 ML PF EPI STA (20:24)
[2024-04-29] MEDS: ePHEDrine sulfate 50 MG/ML AMP ONE (20:24)
[2024-04-30] MEDS: FAMOTIDINE 20MG IV PUSH 20 MG/5 ML SYR IV ONE (02:31)
[2024-04-30] MEDS: OXYTOCIN 30 UNITS/NSS 30 UNITS/500 ML BAG IV PRN (03:39)
--- NOTE | 2024-04-30 03:46 | Delivery Summary ---
Vaginal Delivery Summary Date of Service April 30, 2024 Vaginal Delivery Summary DIAGNOSES: 1. Talbert intrauterine at 37w4d gestation. 2. Induction of labor due to new onset arrhythmia. 3. Group B Streptococcus Neg. PROCEDURE: Spontaneous vaginal delivery and repair of first degree laceration. SURGEON: Hemalatha Oconnell MD. AIRPLANE RENTAL CLERK: None. ESTIMATED BLOOD LOSS: 200 mL. COMPLICATIONS: None. PLACENTA: Spontaneous and intact with a 3-vessel cord. DISPOSITION: Stable to labor and delivery. DESCRIPTION: The patient pushed well and brought the head to in DOA position. The infant's head was allowed to deliver with contraction force and no further active pushing, with the perineum protected during this time. There was one loop of nuchal cord. The left shoulder was anterior. The shoulders and body delivered without any difficulty, and the was placed on the maternal abdomen. It was vigorous and moving all extremities, and making respiratory efforts. The cord was doubly clamped by the MD and then cut by the FOB. The placenta delivered spontaneously and was noted to be intact and with a 3VC. The cervix, vagina and perineum were examined and were found to have a small first degree perineal lac which was closed with 3-0 vicryl. The fundus was firm and lochia minimal immediately after delivery. [facility] Vaginal Delivery Charge Vaginal Delivery Codes: 28520 global code for the antepartum, delivery, and post-
[2024-04-30] MEDS ORDERED: HYDROCORTISONE ACETATE 25 MG SUPP PR PRN (05:28)
[2024-04-30] MEDS ORDERED: bisacodyL 10 MG SUPP PR PRN (05:28)
[2024-04-30] MEDS ORDERED: oxyCODONE/ACETAMINOPHEN 5mg/325mg TAB PO PRN (05:28)
[2024-04-30] MEDS ORDERED: OXYTOCIN 30 UNITS/NSS 30 UNITS/500 ML BAG IV PRN (05:28)
[2024-04-30] MEDS: PRENATAL VITAMIN 1 TAB PO SCH (07:26)
[2024-04-30] MEDS: DOCUSATE SODIUM 100 MG CAP PO SCH (07:26)
[2024-04-30] MEDS: IBUPROFEN 600 MG TAB PO PRN (07:27)
[2024-04-30] MEDS: BENZOCAINE 20% SPRY 85 APPLN/85 GM CAN EXT PRN (07:28)
--- NOTE | 2024-04-30 09:27 | Anesthesia Procedure Note ---
Date of Service April 30, 2024 Anesthesia Post Epidural Note Vital Signs Vital Signs: Temp Pulse Resp BP Pulse Ox O2 Del Method 36.4 C L 91 H 16 116/78 98 Room Air 04/30/24 07:16 04/30/24 07:16 04/30/24 07:16 04/30/24 07:16 04/30/24 07:16 04/30/24 07:16 Pain Intensity Abdomen: Pain Intensity: 2 Notes Mental Status: alert / awake / arousable Nausea / Vomiting: adequately controlled Pain: adequately controlled Airway Patency, RR, SpO2: stable & adequate BP & HR: stable & adequate Hydration State: stable & adequate Neuraxial Anesthesia: was administered and sensory block is resolving Anesthetic Complications: no major complications apparent Epidural: Removed without complications and With tip intact
[2024-04-30] MEDS: ACETAMINOPHEN 325 MG TAB PO PRN (09:36)
[2024-04-30] MEDS: DIPHTHER/TETAN/PERTUS Vaccine (Tdap, Adol/Adult) 0.5mL IM ONE (15:18)
[2024-04-30 23:23] VITALS: PULSE 89; TEMP 98.1; O2SAT 97
[2024-05-01 06:50] LABS: Hematocrit (blood only) 29.6 % (37.0-47.0); Hemoglobin 9.4 g/dl (12.0-16.0); Mean Corpuscular Hemoglobin 29.2 pg (25.0-34.0); Mean Corpuscular Hgb Conc 31.8 g/dL (32.0-36.0); Mean Corpuscular Volume 91.9 fL (80.0-100.0); Mean Platelet Volume 11.9 fL (9.4-12.4); Platelet Count 119 K/uL (130-400); RDW Coefficient of Variation 16.5 % (11.5-14.5); RDW Standard Deviation 54.9 fL (36.4-46.3); Red Blood Count 3.22 M/uL (4.20-5.40); White Blood Count 7.67 K/ul (4.8-10.8)
[2024-05-01 08:47] VITALS: BP 107/73; RESP 16
--- NOTE | 2024-05-01 08:57 | Obstetrical Progress Note ---
Date of Service May 01, 2024 Assessment & Plan (1) Encounter for care and examination after delivery: satisfactory recovery plan discharge today follow up in 6 weeks or PRN Subjective Ambulation: ambulating normally Voiding: no voiding problems Passing Gas:: Yes Diet Tolerance:: regular diet Lochia:: Small Feeding Type:: breast feeding upper back is sore and tight continues to have uterine cramping but taking ibuprofen and using [employer] Review of Systems All systems reviewed & are unremarkable except as noted in HPI & below Physical Exam Constitutional WD/WN, vitals as above Psychiatric A+Ox3, euthymic affect Genitourinary OB Exam Abdomen: + fundal height Fundus: + firm and + relation to umbilicus (2 below U) Results & Data Vital Signs (Past 12 Hours) Vital Signs Temp Pulse Resp BP BP Pulse Ox O2 Del Method 05/01/24 08:46 98.1 F 89 16 107/73 04/30/24 23:21 98.1 F 89 18 110/70 97 Room Air
[2024-05-01] MEDS ORDERED: bisacodyL 5 MG TABEC PO SCH (20:00)
== END 2024-05-01 14:10 | disposition home or self-care (01) | DRG 807 ==
LOC: OPB 12:15 → 4S1 12:17 → 4E2 04-30 07:15